=== PATIENT | male | born 1970 | race Caucasian/White ===

== ENCOUNTER 2017-06-15 20:07 | Inpatient (IN) | payer OTHER, MEDICAID ==
--- NOTE | 2017-06-15 20:23 | EDPHY ---
H & P Time Seen by Provider: 06/15/17 20:13 HPI/ROS: CHIEF COMPLAINT: M1 HISTORY OF PRESENT ILLNESS: Patient is a 33-year-old man who appears to be homeless and appears to have schizophrenia he was causing a disturbance at the bus stop and police were called. They brought him here. He has a PICC line in place and hospital bed from an outside hospital. He has surgical incision in his right foot with stitches in place that appears infected and swollen very tender. He tells us that he is Tereso and that he is fighting Thomas. He tells us that aliens put something in his foot. He also tells is however not to remove his PICC line because he needs it to inject his medicine because he has an infected bone in his foot. REVIEW OF SYSTEMS: Unable to obtain reliable review of systems because a condition EXAM: GENERAL: Well-appearing, well-nourished and in no acute distress. HEAD: Atraumatic, normocephalic. EYES: Pupils equal round and reactive to light, extraocular movements intact, sclera anicteric, conjunctiva are normal. ENT: TMs normal, nares patent, oropharynx clear without exudates. Moist mucous membranes. NECK: Normal range of motion, supple without lymphadenopathy or JVD. LUNGS: Breath sounds clear to auscultation bilaterally and equal. No wheezes rales or rhonchi. HEART: Regular rate and rhythm without murmurs, rubs or gallops. ABDOMEN: Soft, nontender, normoactive bowel sounds. No guarding, no rebound. No masses appreciated. BACK: No CVA tenderness, no spinal tenderness, step-offs or deformities EXTREMITIES: See below NEUROLOGICAL: Cranial nerves II through XII grossly intact. Normal speech, normal gait. 5/5 strength, normal movement in all extremities, normal sensation PSYCH: Completely disorganized and delusional, SKIN: Swelling and erythema and tenderness to right foot medially surrounding a surgical incision with sutures in place. Source: Patient, Police Exam Limitations: Clinical condition - Medical/Surgical History Other PMH: Unable to obtain secondary to condition - Family History Significant Family History: No pertinent family hx, Other (Unknown) - Social History Alcohol Use: Other (Unknown) Constitutional: Initial Vital Signs Temperature (C) 37.5 C 06/15/17 20:21 Heart Rate 128 H 06/15/17 20:21 Respiratory Rate 16 06/15/17 20:21 Blood Pressure 153/103 H 06/15/17 20:21 O2 Sat (%) 96 06/15/17 20:21 O2 Delivery Mode Room Air Allergies/Adverse Reactions: No Known Allergies Allergy (Unverified 06/15/17 20:21) Home Medications: Medication Instructions Recorded NK [No Known Home Meds] 06/15/17 Medical Decision Making - Diagnostics Imaging Results: Imaging Impressions Chest X-Ray 06/15/17 21:09 Impression: No acute intrathoracic abnormality. Foot X-Ray 06/15/17 21:09 Impression: Periarticular osteolucency with marginal erosion at the great toe tarsometatarsal junction (and a questionable osteolucent lesion in the great toe metatarsal diaphysis), which may be infectious in etiology given the patient 's history. Correlation with prior studies would be helpful to assess for more specific interval change. Imaging: Discussed imaging studies w/ calliope player Radiologist ED Course/Re-evaluation: 8:50 p.m. I was able to find the patient's previous records in [facility]. He had been treated at [facility] for osteomyelitis. This is presumably where he had his surgery. He was discharged from there on the with a PICC line in place and instructed to give himself Ancef every 8 hr. 6 hr later he showed up at [facility] and stated that he had lost his antibiotics. They were preparing to give him antibiotics and obtain a chest x-ray to evaluate location of the PICC line however they return to tell him it needed some adjustment he accused him of trying to poison him and ran out of the ER. He stated to them that a Matteo Cobra bit his foot and that is what caused the initial infection. The patient will remain on an M1 hold here and be admitted to the medical service for antibiotic treatment. He will cry ICU because of the M1 hold. He was positive for amphetamines at [facility]. I discussed the case with Dr. Mays. We will not use the PICC line and will have it removed. The patient has pain IV. 10:50 p.m. I discussed the case with Dr. Bean who will consult. Differential Diagnosis: Partial list of the Differential diagnosis considered include but were not limited to; schizophrenia, osteomyelitis, cellulitis, sepsis and although unlikely based on the history and physical exam, I also considered head injury, intoxication. Critical Care Time: Critical care time spent by me, Dr. Junior exclusive with this patient was 45 minutes, exclusive of the PA time exclusive of procedures. The organ system that was at risk was musculoskeletal and I gave diagnosis, admission and antibiotic administration to prevent worsening of the patient's condition - Data Points Laboratory Results: Laboratory Results 06/15/17 20:30 06/15/17 20:30 06/15/17 06/15/17 06/15/17 20:30 20:30 20:30 WBC 18.12 10^3/uL H 10^3/uL (3.80-9.50) RBC 4.41 10^6/uL 10^6/uL (4.40-6.38) Hgb 12.3 g/dL L g/dL (13.7-17.5) Hct 38.0 % L % (40.0-51.0) MCV 86.2 fL fL (81.5-99.8) MCH 27.9 pg pg (27.9-34.1) MCHC 32.4 g/dL g/dL (32.4-36.7) RDW 13.7 % % (11.5-15.2) Plt Count 343 10^3/uL 10^3/uL (150-400) MPV 9.6 fL fL (8.7-11.7) Neut % (Auto) 84.2 % H % (39.3-74.2) Lymph % (Auto) 8.1 % L % (15.0-45.0) Alexander % (Auto) 6.7 % % (4.5-13.0) Eos % (Auto) 0.2 % L % (0.6-7.6) Baso % (Auto) 0.4 % % (0.3-1.7) Nucleat RBC Rel Count 0.0 % % (0.0-0.2) Absolute Neuts (auto) 15.26 10^3/uL H 10^3/uL (1.70-6.50) Absolute Lymphs (auto) 1.47 10^3/uL 10^3/uL (1.00-3.00) Absolute Monos (auto) 1.21 10^3/uL H 10^3/uL (0.30-0.80) Absolute Eos (auto) 0.03 10^3/uL 10^3/uL (0.03-0.40) Absolute Basos (auto) 0.08 10^3/uL 10^3/uL (0.02-0.10) Absolute Nucleated RBC 0.00 10^3/uL 10^3/uL (0-0.01) Immature Gran % 0.4 % % (0.0-1.1) Immature Gran # 0.07 10^3/uL 10^3/uL (0.00-0.10) ESR Pending PT 15.0 SEC SEC (12.0-15.0) INR 1.16 (0.83-1.16) APTT 33.1 SEC SEC (23.0-38.0) Sodium Potassium Chloride Carbon Dioxide Anion Gap BUN Creatinine Estimated GFR Glucose Calcium Total Bilirubin C-Reactive Protein Pending Ethyl Alcohol 06/15/17 20:30 WBC RBC Hgb Hct MCV MCH MCHC RDW Plt Count MPV Neut % (Auto) Lymph % (Auto) Alexander % (Auto) Eos % (Auto) Baso % (Auto) Nucleat RBC Rel Count Absolute Neuts (auto) Absolute Lymphs (auto) Absolute Monos (auto) Absolute Eos (auto) Absolute Basos (auto) Absolute Nucleated RBC Immature Gran % Immature Gran # ESR PT INR APTT Sodium 138 mEq/L mEq/L (135-145) Potassium 4.5 mEq/L mEq/L (3.5-5.2) Chloride 99 mEq/L mEq/L (97-110) Carbon Dioxide 20 mEq/l L mEq/l (22-31) Anion Gap 19 mEq/L H mEq/L (8-16) BUN 17 mg/dL mg/dL (7-23) Creatinine 0.8 mg/dL mg/dL (0.7-1.3) Estimated GFR > 60 Glucose 109 mg/dL H mg/dL (70-100) Calcium 10.0 mg/dL mg/dL (8.5-10.4) Total Bilirubin 0.6 mg/dL mg/dL (0.1-1.4) C-Reactive Protein Ethyl Alcohol < 10 mg/dL mg/dL (0-10) Medications Given: Morphine Sulfate (Morphine) 1 - 2 mg IVP Q1HR PRN PRN Reason: Pain, Severe Unable to Take PO Stop: 06/25/17 21:44 Last Admin: 06/15/17 22:22 Dose: 2 mg Discontinued Medications Cefepime HCl 2 gm/ Sterile (Water) 12.5 mls @ 150 mls/hr IV EDNOW ONE PRN Reason: Protocol Stop: 06/15/17 20:57 Last Admin: 06/15/17 21:51 Dose: 12.5 mls Sodium Chloride (Ns) 2,300 mls @ 4,600 mls/hr 30 ml/kg infuse over 30 min ( 2300 ml) IV EDNOW ONE PRN Reason: Protocol Stop: 06/15/17 22:27 Last Admin: 06/15/17 22:08 Dose: 2,300 mls Departure - Departure Disposition: [facility] Inpatient Acute Clinical Impression: Acute psychosis, Severe sepsis Osteomyelitis Qualifiers: Osteomyelitis type: unspecified type Osteomyelitis location: foot Laterality: right Qualified Code(s): M86.9 - Osteomyelitis, unspecified Condition: Critical
[2017-06-15] MEDS ORDERED: CEFEPIME HCL 2 GM in STERILE WATER INJ 12.5 ML IV ONE (20:53)
[2017-06-15 21:17] LABS: PLATELET COUNT 343 10^3/uL (150-400)
[2017-06-15 21:30] LABS: INR 1.16 (0.83-1.16)
[2017-06-15] MEDS ORDERED: LORazepam 2 MG/ML INJ IVP PRN (21:45)
[2017-06-15] MEDS ORDERED: ONDANSETRON 4 MG/2 ML VIAL IVP PRN (21:45)
[2017-06-15] MEDS ORDERED: ACETAMINOPHEN 325 MG TAB PO PRN (21:45)
[2017-06-15] MEDS ORDERED: NS 2,300 ML IV ONE (21:58)
--- NOTE | 2017-06-15 23:21 | PDGENHP ---
History and Physical - Chief Complaint R foot pain - History of Present Illness 46 yo M w/ schizophrenia, currently decompensated, and hx of methamphetamine abuse presents with R foot pain. Patient was discharged from [facility] 2 days ago with a PICC line and a prescription for outpatient Cefazolin therapy. He then presented to [facility] shortly after discharge from with complaints of R foot pain and that he lost his antibiotics, per records available in [place]. Before receiving treatment at [facility] he left AMA per review of records. He presents here with an erythematous, swollen, and painful right foot with fairly recent surgical incision in place. At the time of my evaluation patient is severely psychiatrically decompensated. He believes he is Tereso of [place] and that his foot was bitten by a sea serpent. He states that he does not like to take his psychiatric medication. He cannot elaborate much on any of his past medical history as he has very little insight and significantly disorganized thought structure at the moment. History Information - Allergies/Home Medication List Allergies/Adverse Reactions: No Known Allergies Allergy (Unverified 06/15/17 20:21) Home Medications: NK [No Known Home Meds] 06/15/17 [Last Taken Unknown] I have personally reviewed and updated: family history, medical history - Past Medical History Additional medical history: Schizophrenia - Surgical History Additional surgical history: R foot I&D - Family History Additional family history: Asked, cannot provide - Social History Smoking Status: Unknown if ever smoked Alcohol Use: Other (Unknown) Drug Use: Other (Methamphetamine) Review of Systems Review of Systems: ROS: 10pt was reviewed & negative except for what was stated in HPI & below Physical Exam Physical Exam: Temp Pulse Resp BP Pulse Ox 37.0 C 106 H 20 145/102 H 98 06/15/17 22:46 06/15/17 23:00 06/15/17 23:00 06/15/17 23:00 06/15/17 23:00 Constitutional: uncomfortable, unkempt Eyes: PERRL, EOMI Ears, Nose, Mouth, Throat: moist mucous membranes, no oral mucosal ulcers Cardiovascular: systolic murmur, tachycardia Respiratory: no respiratory distress, clear to auscultation Gastrointestinal: normoactive bowel sounds, soft, non-tender abdomen Skin: erythema, fluctuance, other (R surgical incision on medial R foot surrounded by swelling and erythema) Musculoskeletal: full muscle strength, normal joint ROM Neurologic: sensation intact bilaterally, CN II-XII Intact Psychiatric: agitated, poor insight, poor judgement, poor memory, other ( Disorganized thought, paranoid thinking, significant delusions) Lab Data & Imaging Review 06/15/17 20:30 06/15/17 20:30 WBC 18.12 10^3/uL (3.80-9.50) H 06/15/17 20:30 RBC 4.41 10^6/uL (4.40-6.38) 06/15/17 20:30 Hgb 12.3 g/dL (13.7-17.5) L 06/15/17 20:30 Hct 38.0 % (40.0-51.0) L 06/15/17 20:30 MCV 86.2 fL (81.5-99.8) 06/15/17 20:30 MCH 27.9 pg (27.9-34.1) 06/15/17 20:30 MCHC 32.4 g/dL (32.4-36.7) 06/15/17 20:30 RDW 13.7 % (11.5-15.2) 06/15/17 20:30 Plt Count 343 10^3/uL (150-400) 06/15/17 20:30 MPV 9.6 fL (8.7-11.7) 06/15/17 20:30 Neut % (Auto) 84.2 % (39.3-74.2) H 06/15/17 20:30 Lymph % (Auto) 8.1 % (15.0-45.0) L 06/15/17 20:30 [place] % (Auto) 6.7 % (4.5-13.0) 06/15/17 20:30 Eos % (Auto) 0.2 % (0.6-7.6) L 06/15/17 20:30 Baso % (Auto) 0.4 % (0.3-1.7) 06/15/17 20:30 Nucleat RBC Rel Count 0.0 % (0.0-0.2) 06/15/17 20:30 Absolute Neuts (auto) 15.26 10^3/uL (1.70-6.50) H 06/15/17 20:30 Absolute Lymphs (auto) 1.47 10^3/uL (1.00-3.00) 06/15/17 20:30 Absolute Monos (auto) 1.21 10^3/uL (0.30-0.80) H 06/15/17 20:30 Absolute Eos (auto) 0.03 10^3/uL (0.03-0.40) 06/15/17 20:30 Absolute Basos (auto) 0.08 10^3/uL (0.02-0.10) 06/15/17 20:30 Absolute Nucleated RBC 0.00 10^3/uL (0-0.01) 06/15/17 20:30 Immature Gran % 0.4 % (0.0-1.1) 06/15/17 20:30 Immature Gran # 0.07 10^3/uL (0.00-0.10) 06/15/17 20:30 ESR 25 MM/HR (0-15) H 06/15/17 20:30 PT 15.0 SEC (12.0-15.0) 06/15/17 20:30 INR 1.16 (0.83-1.16) 06/15/17 20:30 APTT 33.1 SEC (23.0-38.0) 06/15/17 20:30 VBG Lactic Acid 2.6 mmol/L (0.7-2.1) H 06/15/17 21:30 Sodium 138 mEq/L (135-145) 06/15/17 20:30 Potassium 4.5 mEq/L (3.5-5.2) 06/15/17 20:30 Chloride 99 mEq/L (97-110) 06/15/17 20:30 Carbon Dioxide 20 mEq/l (22-31) L 06/15/17 20:30 Anion Gap 19 mEq/L (8-16) H 06/15/17 20:30 BUN 17 mg/dL (7-23) 06/15/17 20:30 Creatinine 0.8 mg/dL (0.7-1.3) 06/15/17 20:30 Estimated GFR > 60 06/15/17 20:30 Glucose 109 mg/dL (70-100) H 06/15/17 20:30 Calcium 10.0 mg/dL (8.5-10.4) 06/15/17 20:30 Total Bilirubin 0.6 mg/dL (0.1-1.4) 06/15/17 20:30 C-Reactive Protein 72.0 mg/L (<10.0) H 06/15/17 20:30 Ethyl Alcohol < 10 mg/dL (0-10) 06/15/17 20:30 Imaging Review: Imaging Impressions Chest X-Ray 06/15/17 21:09 Impression: No acute intrathoracic abnormality. Foot X-Ray 06/15/17 21:09 Impression: Periarticular osteolucency with marginal erosion at the great toe tarsometatarsal junction (and a questionable osteolucent lesion in the great toe metatarsal diaphysis), which may be infectious in etiology given the patient 's history. Correlation with prior studies would be helpful to assess for more specific interval change. Assessment & Plan Assessment: 46 yo M w/ paranoid schizophrenia, currently decompensated, presents with R foot infection and recent diagnosis of OM at outside hospital. Plan: 1. Sepsis 2/2 R foot cellulitis, underlying OM - Sepsis per WBC of 18 and tachycardia. CRP elevated at 72. Patient recently admitted at [facility] and discharged with PICC line and prescription of Ancef, which he did not receive. Upon inspection foot is erythematous, swollen, and painful with recent surgical incision noted. XR concerning for OM, which is not new per report. - Continue Cefazolin 2 g IV q8h - Repeat blood cultures - ID consult placed - Surgical consultation placed as he may need repeat I&D 2. Schizophrenia, acute decompensated - Per patient report and review of records in [facility], patient is historically non-compliant. He is quite decompensated at the moment and will benefit from medication treatment. - Will start Zyprexa 6 mg qHS for now - Psychiatry consultation, admit to ICU for M1 hold 3. Hx methamphetamine abuse - Check Utox Diet - Regular, NPO @ [facility] in case he needs surgical intervention Code - Full Ppx - SCDs Dispo - Admit as inpatient status and M1 hold noting need for IV antibiotics, surgical consultation, and psychiatric treatment.
[2017-06-15] MEDS ORDERED: OLANZapine 5 MG TAB PO SCH (23:30)
[2017-06-15] MEDS ORDERED: PROPOFOL 200 MG/20 ML VIAL IVP ONE ×2 (23:38→23:45)
--- NOTE | 2017-06-16 00:06 | PDCONSULT ---
Radio Interference Expert Note: full consult dictated Rt foot infection ? osteomyelitis underlying I&D with pulse lavage wound care consult in am
--- NOTE | 2017-06-16 00:26 | PDMN ---
Medical Necessity Medical necessity: C/M review: est. > 2 MN LOS for eval and TX of acute and persistent - sepsis secondary to right foot cellulitis, right foot is erythematous, swollen with recent surgical incision present on admit, underlying osteomyelitis, decompensated schizophrenia requiring planned Surgical consult as patient may need repeat I&D, , planned Infectious disease consult, planned Psychiatry consult, IV Cefazolin, M1 hold in ICU comorbid recent hospitalization at [facility] and patient discharged with PICC line and prescription of Ancef which the patient did not receive, comorbid history of noncompliance, methamphetamine abuse per H/P.
[2017-06-16 03:48] LABS: PLATELET COUNT 274 10^3/uL (150-400)
[2017-06-16] MEDS: ceFAZolin 2 GM/DEXTROSE 100 ML IV SCH ×3 (05:42→22:32)
--- NOTE | 2017-06-16 06:52 | GCON ---
[f rep st] CONSULTATION HISTORY OF PRESENT ILLNESS: This is a 46-year-old gentleman, who was released from [facility] ent with right foot infection, possible osteomyelitis, on Ancef through a PICC line, who presented then to [facility], but then left AMA and was brought here on an M1 hold due to psychiatric is sues. He believes that he is Tereso and that he is helping Mohammad, and that aliens are trying to pu t poison in his leg. The patient is unable to give a good history. This was gotten from the care te am. In the notes, no x-rays were performed by my own review of [facility] notes. PHYSICAL EXAMINATION: The patient is awake. He is complaining of pain in his right foot. Sclerae a re anicteric. Oropharynx is moist. He has multiple skin wounds and left brachial PICC line. His yoon ngs are clear. Heart has regular heart tones. Abdomen is soft. He has 2+/2+ peripheral pulses. Ri ght foot is edematous with erythema around a previously incised area that has been closed with interr upted vertical mattress sutures. IMPRESSION: Infection of the right foot, possible osteomyelitis. PLAN: I and D. After discussion with Dr. Olson, we have decided that this is recommended at this point, and we will proceed with bedside I and D. Under propofol, his wound was cleansed. The stitch es were removed. I digitally explored the wound, which was not very deep. Serous fluid was obtained and the area was irrigated with pulse lavage and iodine gauze was placed, and the patient had it wra pped. We will continue to follow the patient while he is here in the hospital. /[id number]/MODL
--- NOTE | 2017-06-16 08:41 | SOAPPROG ---
SOAP Progress Note Assessment/Plan: Assessment/Plan: Still erythematous but draining. Will continue to follow-up the hospital. Wound culture if antibiotics failed to show significant improvement Daily dressing change with iodoform gauze. Continue Ancef consider Unasyn 06/16/17 08:40 Objective: Vital Signs Temp Pulse Resp BP Pulse Ox 36.6 C 90 11 L 123/72 H 98 06/16/17 08:00 06/16/17 08:00 06/16/17 08:00 06/16/17 08:00 06/16/17 07:00 Laboratory Results 06/16/17 03:20 06/16/17 03:20 06/15/17 06/16/17 06/17/17 05:59 05:59 05:59 Intake Total 910 Output Total 450 400 Balance 460 -400 PT 15.0 SEC (12.0-15.0) 06/15/17 20:30 INR 1.16 (0.83-1.16) 06/15/17 20:30 ICD10 Worksheet Patient Problems: Problems Problem Status Onset Acute psychosis Acute Osteomyelitis Acute Severe sepsis Acute
--- NOTE | 2017-06-16 09:46 | ASMTCMCOM ---
CM Note CM Note Notes: 46 year old male admitted for R foot infection, possible osteomyelitis, schizophrenia-psychosis. He has a hx of meth use. Was D/C from [facility] 2 days ago went to [facility], left AMA came to [facility] and now on M1 Hold. Will need a psych eval after cleared medically. CM to follow. Date Signed: 06/16/2017 09:45 AM Electronically Signed By:Claudia Delgadillo LCSW
[2017-06-16] MEDS ORDERED: OLANZapine 5 MG TAB PO PRN (09:52)
[2017-06-16] MEDS ORDERED: HALOPERIDOL LACT 5 MG/ML INJ IVP PRN (09:53)
[2017-06-16] MEDS: OLANZapine 5 MG TAB PO SCH ×2 (11:14→22:32)
--- NOTE | 2017-06-16 13:22 | HOSPPROG ---
Hospitalist Progress Note Assessment/Plan: * right lower extremity cellulitis and probable osteomyelitis * Was at [facility] and had I and D there it appears * Continue IV Ancef for now. * Infectious Disease will see * We need to get records from [facility] * schizophrenia * Schedule Zyprexa twice daily and as needed * Haldol p.r.n. * methamphetamine use * Positive U tox Subjective: No new complaints. Seems pretty calm with Ativan and Zyprexa Objective: Vital Signs Temp Pulse Resp BP Pulse Ox 36.6 C 90 11 L 123/72 H 98 06/16/17 08:00 06/16/17 08:00 06/16/17 08:00 06/16/17 08:00 06/16/17 07:00 Laboratory Results 06/16/17 03:20 06/16/17 03:20 06/15/17 06/16/17 06/17/17 05:59 05:59 05:59 Intake Total 910 Output Total 450 400 Balance 460 -400 PT 15.0 SEC (12.0-15.0) 06/15/17 20:30 INR 1.16 (0.83-1.16) 06/15/17 20:30 - Physical Exam Constitutional: no apparent distress, appears nourished, not in pain Eyes: anicteric sclera, EOMI Ears, Nose, Mouth, Throat: moist mucous membranes, hearing normal Cardiovascular: regular rate and rhythym Respiratory: no respiratory distress Skin: warm Musculoskeletal: other (Right foot with incision medially that is with some surrounding erythema which has been marked) ICD10 Worksheet Patient Problems: Problems Problem Status Onset Acute psychosis Acute Osteomyelitis Acute Severe sepsis Acute
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
[2017-06-17 03:58] LABS: HIV TYPE 1 AND 2 NEGATIVE (NEGATIVE)
[2017-06-17 06:02] LABS: PLATELET COUNT 242 10^3/uL (150-400)
[2017-06-17] MEDS: ceFAZolin 2 GM/DEXTROSE 100 ML IV SCH ×3 (06:28→21:24)
[2017-06-17] MEDS: OLANZapine 5 MG TAB PO SCH ×2 (08:34→21:24)
--- NOTE | 2017-06-17 12:13 | PCMIDPN ---
Assessment/Plan: Assessment: Osteomyelitis right foot-recent stay at [facility]. Per verbal report through Dr. Lucio the patient had a closed wound upon discharge at [facility]. Currently the wound is opened and has no further purulence able to be produced. Patient is covered empirically with cefazolin. Staph aureus seen in wound culture. Wound at [facility] had MSSA in culture. Will continue to cover with cefazolin. Long-term treatment for osteomyelitis given underlying mental health issues is going to be difficult. Plan: 1. Continue IV cefazolin. 2. Follow up on wound culture data. 3. Follow clinical course. Subjective: Patient is resting in his hospital bed in the ICU. He is on on a mental health hold. No significant complaints. No issues per his RN. Objective: Cefazolin #2 Vital Signs Temp Pulse Resp BP Pulse Ox 37.1 C 87 18 116/83 H 94 06/17/17 07:11 06/17/17 07:11 06/17/17 00:00 06/17/17 07:11 06/17/17 07:11 Microbiology 06/16/17 13:45 Gram Stain - Final Foot - Swab Laboratory Results 06/17/17 05:22 06/17/17 05:22 06/16/17 06/17/17 06/18/17 05:59 05:59 05:59 Intake Total 910 1700 Output Total 450 1600 Balance 460 100 ESR 25 MM/HR (0-15) H 06/15/17 20:30 C-Reactive Protein 72.0 mg/L (<10.0) H 06/15/17 20:30 - Physical Exam General Appearance: WD/WN, alert, no apparent distress, non-toxic Skin: normal color, warm/dry, No rash ICD10 Worksheet Patient Problems: Problems Problem Status Onset Acute psychosis Acute Osteomyelitis Acute Severe sepsis Acute
[2017-06-17] MEDS: NICOTINE 21 MG/24 HR PATCH TD SCH (12:51)
--- NOTE | 2017-06-17 16:13 | SOAPPROG ---
SOAP Progress Note Assessment/Plan: Assessment/Plan: Still erythematous but draining. Will continue to follow-up the hospital. Wound culture initial staph aureus Daily dressing change with iodoform gauze. Wound improved, foot still swollen. Hx of frostbite ? baseline Continue Ancef consider Unasyn 06/17/17 16:06 Objective: Vital Signs Temp Pulse Resp BP Pulse Ox 36.9 C 79 18 118/77 95 06/17/17 15:24 06/17/17 15:24 06/17/17 00:00 06/17/17 15:24 06/17/17 15:24 Microbiology 06/16/17 13:45 Gram Stain - Final Foot - Swab Laboratory Results 06/17/17 05:22 06/17/17 05:22 06/16/17 06/17/17 06/18/17 05:59 05:59 05:59 Intake Total 910 1700 1400 Output Total 450 1600 950 Balance 460 100 450 PT 15.0 SEC (12.0-15.0) 06/15/17 20:30 INR 1.16 (0.83-1.16) 06/15/17 20:30 ICD10 Worksheet Patient Problems: Problems Problem Status Onset Acute psychosis Acute Osteomyelitis Acute Severe sepsis Acute
--- NOTE | 2017-06-17 17:29 | ASMTCMCOM ---
CM Note CM Note Notes: Spoke to patient's mother, Constanza [phone] today. Patient has had mental hlth and SA difficulties for the past 30 years. He is involved with the [facility] [place] and has a CM named Sayda Harrington [phone] who has been working with him for the past 2 years and knows what medications they have prescribed. This info given to [facility] pharmacy. Mother also reports that patient is a paranoid schizophrenic, feels that everyone is after him and that a snake bit him in his foot and that's why it's infected. He had been at [facility] for 11 days then went to [facility] for more IV ABX. He left there due to his paranoia and came to [place]. Mother reports that he uses Meth and Heroin. Mother feels that he is a "Danger to Himself". Date Signed: 06/17/2017 05:28 PM Electronically Signed By:Claudia Delgadillo LCSW
--- NOTE | 2017-06-17 21:14 | HOSPPROG ---
Hospitalist Progress Note Assessment/Plan: * RLE osteomyelitis/abscess - MSSA -IV ancef -prolong abx will be difficult due to drug abuse history with PICC * Paranoid schizophrenia -trying to clarify home meds -PO zyprexa for now * IVDA -doubt acute psychosis on admission - likely drug intoxication -patient now awake/alert/oriented and denies suicidal thoughts -DC M1 hold Subjective: no complaints other than foot pain Objective: Vital Signs Temp Pulse Resp BP Pulse Ox 36.9 C 79 18 118/77 95 06/17/17 15:24 06/17/17 15:24 06/17/17 00:00 06/17/17 15:24 06/17/17 15:24 Microbiology 06/16/17 13:45 Gram Stain - Final Foot - Swab Laboratory Results 06/17/17 05:22 06/17/17 05:22 06/16/17 06/17/17 06/18/17 05:59 05:59 05:59 Intake Total 910 1700 1650 Output Total 450 1600 950 Balance 460 100 700 PT 15.0 SEC (12.0-15.0) 06/15/17 20:30 INR 1.16 (0.83-1.16) 06/15/17 20:30 d/w Dr. Barrios - M1 hold likely not necessary foot xray - probably osteomyelitis - Physical Exam Constitutional: no apparent distress, appears nourished, not in pain Cardiovascular: regular rate and rhythym, no murmur, rub, or gallop Respiratory: no respiratory distress, no rales or rhonchi, clear to auscultation Gastrointestinal: normoactive bowel sounds, soft, non-tender abdomen, no palpable masses Skin: no rashes or abrasions, no fluctuance, no induration Neurologic: AAOx3, sensation intact bilaterally Psychiatric: interacting appropriately, not anxious, not encephalopathic, thought process linear ICD10 Worksheet Patient Problems: Problems Problem Status Onset Acute psychosis Acute Osteomyelitis Acute Severe sepsis Acute
[2017-06-18] MEDS: ceFAZolin 2 GM/DEXTROSE 100 ML IV SCH ×3 (05:36→21:01)
[2017-06-18] MEDS: NICOTINE 21 MG/24 HR PATCH TD SCH (08:07)
[2017-06-18] MEDS: OLANZapine 5 MG TAB PO SCH (08:07)
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
--- NOTE | 2017-06-18 17:14 | HOSPPROG ---
Hospitalist Progress Note Assessment/Plan: * RLE osteomyelitis/abscess - MSSA - extensive - s/p I&D at -IV ancef - needs 6 weeks total treatment -d/w Dr. Lucio - discharging with PICC line not an option given drug abuse history -plan to keep inpatient for full therapy -pain control - IV morphine - will change to PO -remove PICC -consider re-imaging foot given worsened status since discharge * Paranoid schizophrenia -was on zyprexa 20mg at - will increase dose * h/o IVDA - he denies current use but tox + meth/opiates * Hep C + Subjective: Lots of pain in foot, IV morphine wears off too soon. Objective: Vital Signs Temp Pulse Resp BP Pulse Ox 36.8 C 71 16 118/76 98 06/18/17 07:04 06/18/17 07:04 06/18/17 07:04 06/18/17 07:04 06/18/17 07:04 Microbiology 06/16/17 13:45 Gram Stain - Final Foot - Swab Laboratory Results 06/17/17 05:22 06/17/17 05:22 06/17/17 06/18/17 06/19/17 05:59 05:59 05:59 Intake Total 1700 2550 1200 Output Total 1600 1950 1275 Balance 100 600 -75 PT 15.0 SEC (12.0-15.0) 06/15/17 20:30 INR 1.16 (0.83-1.16) 06/15/17 20:30 case d/w Dr. Lucio - difficult social situation - Physical Exam Constitutional: no apparent distress, appears nourished, not in pain Cardiovascular: regular rate and rhythym, no murmur, rub, or gallop Respiratory: no respiratory distress, no rales or rhonchi, clear to auscultation Gastrointestinal: normoactive bowel sounds, soft, non-tender abdomen, no palpable masses Skin: no rashes or abrasions, no fluctuance, no induration Neurologic: AAOx3, sensation intact bilaterally Psychiatric: interacting appropriately, not anxious, not encephalopathic, thought process linear ICD10 Worksheet Patient Problems: Problems Problem Status Onset Acute psychosis Acute Osteomyelitis Acute Severe sepsis Acute
[2017-06-18] MEDS: OXYCODONE/APAP 5/325 TAB PO PRN (17:54)
[2017-06-18] MEDS: OLANZapine 10 MG TAB PO SCH (21:01)
[2017-06-18] MEDS: traMADol 50 MG TAB PO PRN (21:17)
[2017-06-19] MEDS: ceFAZolin 2 GM/DEXTROSE 100 ML IV SCH ×3 (05:25→21:44)
[2017-06-19] MEDS: OXYCODONE/APAP 5/325 TAB PO PRN ×4 (05:31→23:04)
--- NOTE | 2017-06-19 08:23 | SOAPPROG ---
SOAP Progress Note Assessment/Plan: Assessment/Plan: Still erythematous but minimal draining. Daily dressing changed with iodoform gauze. Wound improved, foot less swollen. Hx of frostbite ? baseline Cont abx CT of foot tomorrow if still stagnating to determine if undrained pocket in dorsum/forefoot 06/17/17 16:06 06/19/17 08:21 Objective: Vital Signs Temp Pulse Resp BP Pulse Ox 36.7 C 75 18 115/75 94 06/18/17 23:29 06/18/17 23:29 06/18/17 23:29 06/18/17 23:29 06/18/17 23:29 Microbiology 06/16/17 13:45 Gram Stain - Final Foot - Swab Laboratory Results 06/17/17 05:22 06/17/17 05:22 06/18/17 06/19/17 06/20/17 05:59 05:59 05:59 Intake Total 2550 2400 Output Total 1950 1825 Balance 600 575 PT 15.0 SEC (12.0-15.0) 06/15/17 20:30 INR 1.16 (0.83-1.16) 06/15/17 20:30 ICD10 Worksheet Patient Problems: Problems Problem Status Onset Acute psychosis Acute Osteomyelitis Acute Severe sepsis Acute
[2017-06-19] MEDS: OLANZapine 10 MG TAB PO SCH ×2 (08:59→21:43)
[2017-06-19] MEDS: NICOTINE 21 MG/24 HR PATCH TD SCH (10:57)
--- NOTE | 2017-06-19 15:17 | PCMIDPN ---
Assessment/Plan: # MSSA R LE foot abscess and OM 1st, 2nd met and cuboid: unclear source of infection, stable today but still fairly edematous and tender. --due to extent of disease in his foot would keep him inpatient for IV antibiotic for total of 6 weeks of therapy (almost 2 weeks in). IF he leaves would complete therapy with high dose PO antibiotics with good bioavailability since current attempt at IV failed --continue with PIV unless no new sites because high flight risk for now now --still w fair amount of pain and swelling, may have to consider re-imaging # HCV load 404K, HIV neg # Schizoaffective d/o: up to 20mg olanzapine at OSH, off M1 hold, cooperative today, says some appropriate things # Meth and cocaine use: patient denies meds, IV Abx # approx 14 days cefazolin 2gm IV q8 MRI R foot 06/03/17: abn signal at great toe tarsometatarsal join, with abn signal involving entire 1st met, portions of 2nd & middle cuneiform. Biospy 06/05 showed bone w acute and chr inflammation, fibrosis and remodeling,bone cx MSSA. Tissue cx 06/05/17 MSSA only PCN R. 06/04/17 blood cx (2) neg. Reviewed pictures in OSH records and R foot without swelling and closed incision . TTE neg for veg and blood cx negative Subjective: patient endorses importance of therapy for his foot Objective: Vital Signs Temp Pulse Resp BP Pulse Ox 36.8 C 75 18 116/73 95 06/19/17 08:00 06/19/17 08:00 06/19/17 08:00 06/19/17 08:00 06/19/17 08:00 Microbiology 06/16/17 13:45 Gram Stain - Final Foot - Swab Wound Culture - Final Staphylococcus Aureus Laboratory Results 06/17/17 05:22 06/17/17 05:22 06/18/17 06/19/17 06/20/17 05:59 05:59 05:59 Intake Total 2550 2400 Output Total 1950 1825 Balance 600 575 ESR 25 MM/HR (0-15) H 06/15/17 20:30 C-Reactive Protein 72.0 mg/L (<10.0) H 06/15/17 20:30 General Appearance: alert, no apparent distress, thin, non-toxic EENT: pale conjunctiva, poor dentition, No scleral icterus Respiratory: No accessory muscle use Cardiac/Chest: regular rate, rhythm, No systolic murmur Extremities: swelling R foot medial side, open wound, no purulence, faint erythema surrounding wound Neuro/Psych: no motor/sensory deficits, alert, cooperative ICD10 Worksheet Patient Problems: Problems Problem Status Onset Acute psychosis Acute Osteomyelitis Acute Severe sepsis Acute
[2017-06-19] MEDS: ENOXAPARIN 40 MG/0.4 ML SYR SC SCH (16:10)
--- NOTE | 2017-06-19 17:05 | ASMTCMCOM ---
CM Note CM Note Notes: Pt on 3N from ICU. RN Miguelina spoke to this CM about a conversation she had w pt mother Ele ([phone]), Ele is interested in [facility] for pt. Pt sister who is a nurse had made a call to a case manger at [facility]. Referral sent in [employer], unknown if they can meet pt needs. Pt picc was removed at admission and antibiotics are administered now via peripheral. Chart review indicates pt still needs to be seen by psych here. Pt moved to this afternoon. Date Signed: 06/19/2017 05:04 PM Electronically Signed By:JEREMIE Roman
--- NOTE | 2017-06-19 17:21 | HOSPPROG ---
Hospitalist Progress Note Assessment/Plan: * RLE osteomyelitis/abscess - MSSA - extensive - s/p I&D at -IV ancef - needs 6 weeks total treatment -discharging with PICC line not an option given drug abuse history -plan to keep inpatient for full therapy -consider re-imaging foot given worsened status since discharge * Paranoid schizophrenia -well control on previous zyprexa dose * h/o IVDA - he denies current use but tox + meth/opiates * Hep C + Subjective: No complaints, pain well controlled Objective: Vital Signs Temp Pulse Resp BP Pulse Ox 37.1 C 75 18 120/83 H 98 06/19/17 16:00 06/19/17 08:00 06/19/17 16:00 06/19/17 16:00 06/19/17 16:00 Microbiology 06/16/17 13:45 Gram Stain - Final Foot - Swab Wound Culture - Final Staphylococcus Aureus Laboratory Results 06/17/17 05:22 06/17/17 05:22 06/18/17 06/19/17 06/20/17 05:59 05:59 05:59 Intake Total 2550 2400 Output Total 1950 1825 Balance 600 575 PT 15.0 SEC (12.0-15.0) 06/15/17 20:30 INR 1.16 (0.83-1.16) 06/15/17 20:30 - Physical Exam Constitutional: no apparent distress, appears nourished, not in pain Cardiovascular: regular rate and rhythym, no murmur, rub, or gallop Respiratory: no respiratory distress, no rales or rhonchi, clear to auscultation Gastrointestinal: normoactive bowel sounds, soft, non-tender abdomen, no palpable masses Skin: no rashes or abrasions, no fluctuance, no induration Neurologic: AAOx3, sensation intact bilaterally Psychiatric: interacting appropriately, not anxious, not encephalopathic, thought process linear ICD10 Worksheet Patient Problems: Problems Problem Status Onset Acute psychosis Acute Osteomyelitis Acute Severe sepsis Acute
--- NOTE | 2017-06-19 20:32 | HOSPPROG ---
Hospitalist Progress Note Assessment/Plan: * RLE osteomyelitis/abscess - MSSA - extensive - s/p I&D at -IV ancef - needs 6 weeks total treatment -discharging with PICC line not an option given drug abuse history -plan to keep inpatient for full therapy -consider re-imaging foot given worsened status since discharge * Paranoid schizophrenia -well control on previous zyprexa dose * h/o IVDA - he denies current use but tox + meth/opiates * Hep C + Subjective: No complaints, pain better control Objective: Vital Signs Temp Pulse Resp BP Pulse Ox 36.9 C 69 16 130/87 H 98 06/19/17 19:48 06/19/17 19:48 06/19/17 19:48 06/19/17 19:48 06/19/17 19:48 Microbiology 06/16/17 13:45 Gram Stain - Final Foot - Swab Wound Culture - Final Staphylococcus Aureus Laboratory Results 06/17/17 05:22 06/17/17 05:22 06/18/17 06/19/17 06/20/17 05:59 05:59 05:59 Intake Total 2550 2400 240 Output Total 1950 1825 Balance 600 575 240 PT 15.0 SEC (12.0-15.0) 06/15/17 20:30 INR 1.16 (0.83-1.16) 06/15/17 20:30 - Physical Exam Constitutional: no apparent distress, appears nourished, not in pain Cardiovascular: regular rate and rhythym, no murmur, rub, or gallop Respiratory: no respiratory distress, no rales or rhonchi, clear to auscultation Gastrointestinal: normoactive bowel sounds, soft, non-tender abdomen, no palpable masses Skin: no rashes or abrasions, no fluctuance, no induration Neurologic: AAOx3, sensation intact bilaterally Psychiatric: interacting appropriately, not anxious, not encephalopathic, thought process linear ICD10 Worksheet Patient Problems: Problems Problem Status Onset Acute psychosis Acute Osteomyelitis Acute Severe sepsis Acute
[2017-06-20] MEDS: OXYCODONE/APAP 5/325 TAB PO PRN ×3 (06:02→15:09)
[2017-06-20] MEDS: ceFAZolin 2 GM/DEXTROSE 100 ML IV SCH ×3 (06:28→20:44)
[2017-06-20] MEDS: ENOXAPARIN 40 MG/0.4 ML SYR SC SCH (08:08)
[2017-06-20] MEDS: OLANZapine 10 MG TAB PO SCH ×2 (08:08→20:44)
[2017-06-20] MEDS: NICOTINE 21 MG/24 HR PATCH TD SCH (08:08)
--- NOTE | 2017-06-20 12:40 | ASMTCMCOM ---
CM Note CM Note Notes: Pt currently being treated for RLE Osteomyeitis/abcess, has hx of schizophrenia and IV drug abuse. Pt's director community center from [facility] ([facility]), Viola ([phone]) here this AM to see pt. Todd reports that she has been working with pt for around 6 months and says he is not compliant w/meds, is addicted to meth, although she says he denies this, and he is often hard for her to track down in her attempts to follow him. She obtained release of info this AM from pt so she could discuss info with his mom. I also asked pt if ok for us to share medical info with his mom and sister and he did give verbal consent to this. Viola also [place]. She said that she is advocating for in hospital certification of treatment and she even suggested possibly considering obtaining guardianship through mom or sister. Discussed all of this w/Dr Lewis. Please see her note as to current plan with this pt. Viola reported that pt is on [facility] wait list which is 1 year long through [facility]. Pt's Mom, Constnaza # is [phone]. Viola from [facility] would like to be kep in loop of pts plan/staus so that she can continue to follow him. Date Signed: 06/20/2017 12:39 PM Electronically Signed By:Tesha Powell RN
--- NOTE | 2017-06-20 18:26 | SOAPPROG ---
SOAP Progress Note Assessment/Plan: Assessment/Plan: Still erythematous but minimal draining. Daily dressing changed with iodoform gauze. Wound improved, foot less swollen. Cont abx No need for CT 06/20/17 18:25 Objective: Vital Signs Temp Pulse Resp BP Pulse Ox 36.5 C 70 16 123/90 H 97 06/20/17 15:40 06/20/17 15:40 06/20/17 15:40 06/20/17 15:40 06/20/17 15:40 Laboratory Results 06/17/17 05:22 06/17/17 05:22 06/19/17 06/20/17 06/21/17 05:59 05:59 05:59 Intake Total 2400 740 Output Total 1825 Balance 575 740 PT 15.0 SEC (12.0-15.0) 06/15/17 20:30 INR 1.16 (0.83-1.16) 06/15/17 20:30 ICD10 Worksheet Patient Problems: Problems Problem Status Onset Acute psychosis Acute Osteomyelitis Acute Severe sepsis Acute
--- NOTE | 2017-06-20 19:06 | HOSPPROG ---
Hospitalist Progress Note Assessment/Plan: * RLE osteomyelitis/abscess - MSSA - extensive - s/p I&D at -IV ancef - needs 6 weeks total treatment -discharging with PICC line not an option given drug abuse history -plan to keep inpatient for full therapy -consider re-imaging foot given worsened status since discharge * Paranoid schizophrenia -continue previous zyprexa dose * h/o IVDA - he denies current use but tox + meth/opiates * Hep C + Case d/w his outpatient psych provider. He is very decompensated from a schizophrenia standpoint. They recommend inpatient psych hospitalization post discharge. I don't think there is an inpatient psych facility that will do IV antibiotics, and likely not for the ~4 weeks of therapy still required. Patient is currently compliant with hospitalization. If he attempts to leave however, he should be medically detained, or placed on M1 hold as his outpatient psychiatry team does not think he has decisional capacity from a psych standpoint. When medically stable, would place on M1 hold an pursue inpatient psych stay. Subjective: no new complaints. he understand he may need amputation if he does not complete therapy as recommended Objective: Vital Signs Temp Pulse Resp BP Pulse Ox 36.5 C 70 16 123/90 H 97 06/20/17 15:40 06/20/17 15:40 06/20/17 15:40 06/20/17 15:40 06/20/17 15:40 Laboratory Results 06/17/17 05:22 06/17/17 05:22 06/19/17 06/20/17 06/21/17 05:59 05:59 05:59 Intake Total 2400 740 Output Total 1825 Balance 575 740 PT 15.0 SEC (12.0-15.0) 06/15/17 20:30 INR 1.16 (0.83-1.16) 06/15/17 20:30 - Physical Exam Constitutional: no apparent distress, appears nourished, not in pain Cardiovascular: regular rate and rhythym, no murmur, rub, or gallop Respiratory: no respiratory distress, no rales or rhonchi, clear to auscultation Gastrointestinal: normoactive bowel sounds, soft, non-tender abdomen, no palpable masses Skin: no rashes or abrasions, no fluctuance, no induration Neurologic: AAOx3, sensation intact bilaterally Psychiatric: interacting appropriately, anxious, agitated, poor insight ICD10 Worksheet Patient Problems: Problems Problem Status Onset Acute psychosis Acute Osteomyelitis Acute Severe sepsis Acute
[2017-06-21] MEDS: ceFAZolin 2 GM/DEXTROSE 100 ML IV SCH (05:16)
[2017-06-21] MEDS: OXYCODONE/APAP 5/325 TAB PO PRN ×4 (05:17→22:03)
[2017-06-21] MEDS: OLANZapine 10 MG TAB PO SCH ×2 (09:04→21:58)
[2017-06-21] MEDS: NICOTINE 21 MG/24 HR PATCH TD SCH (09:04)
[2017-06-21] MEDS: LORazepam 1 MG TAB PO PRN ×2 (09:04→15:22)
[2017-06-21] MEDS: ENOXAPARIN 40 MG/0.4 ML SYR SC SCH (09:04)
--- NOTE | 2017-06-21 09:36 | PCMIDPN ---
Assessment/Plan: 1. Right foot abscess secondary to MSSA status post debridement, with concomitant osteomyelitis of the 1st and 2nd metatarsal and cuboid bones: Overall, he is improving nicely. The wound looks great. As outlined by my colleagues previously, he will need Ancef 2 g IV q.8 hours for 6 weeks, and will likely need to stay here for that. No new recommendations. No need for additional imaging presently. 2. History of schizoaffective disorder: After reading the hospitalist's note, it appears that the patient would be put on an M1 hold if he attempted to leave the hospital given his decompensated mental state. 3. History of drug use: He has chronic hepatitis-C. HIV negative. Records reviewed from [facility] again. Hepatitis-B surface antigen negative. Will check surface antibody and core antibody to see if he needs vaccination. Will also check hepatitis a total antibody and vaccinate him if needed. Over 25 min was spent with this patient. 06/21/17 09:36 Subjective: In decent spirits. Says his foot hurts. No diarrhea. Objective: Ancef 2 g IV q.8 hours approximately day 15. Afebrile Vital Signs Temp Pulse Resp BP Pulse Ox 36.4 C 75 16 123/91 H 96 06/21/17 07:44 06/21/17 07:44 06/21/17 07:44 06/21/17 07:44 06/21/17 07:44 Microbiology 06/15/17 21:25 Blood Culture - Final Blood Laboratory Results 06/17/17 05:22 06/17/17 05:22 06/20/17 06/21/17 06/22/17 05:59 05:59 05:59 Intake Total 740 318 Balance 740 318 ESR 25 MM/HR (0-15) H 06/15/17 20:30 C-Reactive Protein 72.0 mg/L (<10.0) H 06/15/17 20:30 Foot cultures here are growing MSSA Blood cultures negative - Physical Exam General Appearance: alert, cachetic EENT: pharynx normal, No thrush Respiratory: lungs clear Cardiac/Chest: regular rate, rhythm, No systolic murmur Extremities: other (Right foot dorsum with elliptical incision/wound that looks excellent. Minimal surrounding tenderness, no surrounding cellulitis. The base of the wound is clean. No significant swelling or warmth. Patient has desquamation of the skin of the bottoms of his feet) ICD10 Worksheet Patient Problems: Problems Problem Status Onset Acute psychosis Acute Osteomyelitis Acute Severe sepsis Acute
[2017-06-21 11:53] LABS: HEPATITIS A ANTIBODY TOTAL NEGATIVE (NEGATIVE); HEPATITIS B CORE AB TOTAL REACTIVE (NEGATIVE)
[2017-06-21] MEDS: ceFAZolin 2 GM/SWFI 2 GM/20 ML SYR IVP SCH ×2 (13:48→21:58)
--- NOTE | 2017-06-21 14:43 | SOAPPROG ---
SOAP Progress Note Assessment/Plan: Assessment/Plan: Still erythematous but minimal draining. Daily dressing changed with iodoform gauze- wound granulating no pockets of undrained fluid Hep C positive Hep B core positive Wound improved, foot less swollen. Cont abx No need for CT Will f/u next week if in house else f/u in office in 2 weeks 06/20/17 18:25 06/21/17 14:42 Objective: Vital Signs Temp Pulse Resp BP Pulse Ox 36.4 C 75 16 123/91 H 96 06/21/17 07:44 06/21/17 07:44 06/21/17 07:44 06/21/17 07:44 06/21/17 07:44 Microbiology 06/15/17 21:25 Blood Culture - Final Blood Laboratory Results 06/17/17 05:22 06/17/17 05:22 06/20/17 06/21/17 06/22/17 05:59 05:59 05:59 Intake Total 740 318 Balance 740 318 PT 15.0 SEC (12.0-15.0) 06/15/17 20:30 INR 1.16 (0.83-1.16) 06/15/17 20:30 ICD10 Worksheet Patient Problems: Problems Problem Status Onset Acute psychosis Acute Osteomyelitis Acute Severe sepsis Acute
--- NOTE | 2017-06-21 14:52 | HOSPPROG ---
Hospitalist Progress Note Assessment/Plan: DIAGNOSES: RLE osteomyelitis/abscess - MSSA - extensive - s/p I&D at -IV ancef - needs 6 weeks total treatment; discharging with PICC line not an option given drug abuse history, plan to keep inpatient for full therapy * Paranoid schizophrenia -continue previous zyprexa dose * h/o IVDA - he denies current use but tox + meth/opiates * Hep C + * current use of IV methamphetamine and heroin the time of admission Case d/w his outpatient psych provider. He is very decompensated from a schizophrenia standpoint. They recommend inpatient psych hospitalization post discharge. I don't think there is an inpatient psych facility that will do IV antibiotics, and likely not for the ~4 weeks of therapy still required. Patient is currently compliant with hospitalization. If he attempts to leave however, he should be medically detained, or placed on M1 hold as his outpatient psychiatry team does not think he has decisional capacity from a psych standpoint. When medically stable, would place on M1 hold an pursue inpatient psych stay. The patient currently has good improvement in his foot in terms of appearance in symptoms. I reviewed the case in detail today with Dr. Alan Bean who is very happy with how his wound is improving. PLANS: -continue current IV antibiotics -plan on completing his antibiotics here in the hospital on this would come up with some other workable plan -continue his Zyprexa monitor his psychiatric condition closely; consider if necessary to use M1 hold to get him to comply with med of [place] infection here -will recheck chemistry panel and CBC to ensure stability, given his infection and antibiotics SUBJECTIVE: Denies any pain, chills, sweats, shortness of breath, nausea Numb side effects of antibiotic OBJECTIVE Vitals reviewed: Stable without fever Dishwashing Machine Operator, my review: Exam: alert oriented skin warm dry color ok resps not labored lungs clear BSs heart regular abd soft nondistended nontender, bowel sounds present limbs ft looks good with no redness swelling or warmth, good motion of the ankle and toes and good pulse at the foot; otherwise limbs are warm, no edema iv site ok Objective: Vital Signs Temp Pulse Resp BP Pulse Ox 36.4 C 75 16 123/91 H 96 06/21/17 07:44 06/21/17 07:44 06/21/17 07:44 06/21/17 07:44 06/21/17 07:44 Microbiology 06/15/17 21:25 Blood Culture - Final Blood Laboratory Results 06/17/17 05:22 06/17/17 05:22 06/20/17 06/21/17 06/22/17 06:59 06:59 06:59 Intake Total 740 318 Balance 740 318 PT 15.0 SEC (12.0-15.0) 06/15/17 20:30 INR 1.16 (0.83-1.16) 06/15/17 20:30 ICD10 Worksheet Patient Problems: Problems Problem Status Onset Acute psychosis Acute Osteomyelitis Acute Severe sepsis Acute
[2017-06-21 15:04] LABS: HEPATITIS B CORE AB IGM NEGATIVE (NEGATIVE)
--- NOTE | 2017-06-21 15:50 | ASMTCMCOM ---
CM Note CM Note Notes: CM met w/ pt for dispo planning. Pt is agreeable to going to SNF for ivabx. Referrals sent to facilities. CM completed triggering [facility] and sent it to [facility]. CM left a msg for pts Mom and requested a call back to discuss d/c plans. Pt currently has a peripheral IV line in to admin ivabx. Pt will need 4 more weeks of ivabx. CM spoke w/ [facility]. [facility] reports that they are unable to accept pt with pts current ongoing need for ivabx. [facility] also reports that pt will most likely need to be on an M1 hold. CM to follow. Plan: SNF Date Signed: 06/21/2017 03:50 PM Electronically Signed By:CHI Jenkins
[2017-06-22 05:24] LABS: PLATELET COUNT 420 10^3/uL (150-400)
[2017-06-22] MEDS: ceFAZolin 2 GM/SWFI 2 GM/20 ML SYR IVP SCH ×3 (05:52→21:36)
[2017-06-22] MEDS: OXYCODONE/APAP 5/325 TAB PO PRN ×4 (05:55→20:20)
[2017-06-22] MEDS: NICOTINE 21 MG/24 HR PATCH TD SCH (09:31)
[2017-06-22] MEDS: ENOXAPARIN 40 MG/0.4 ML SYR SC SCH (09:32)
[2017-06-22] MEDS: OLANZapine 10 MG TAB PO SCH ×2 (09:32→20:20)
--- NOTE | 2017-06-22 12:23 | HOSPPROG ---
Hospitalist Progress Note Assessment/Plan: 46 yo M w/ paranoid schizophrenia, currently decompensated, presents with R foot infection and recent diagnosis of OM at outside hospital. [place] a PICC line in place. Today is my first encounter w the patient, chart reviewed. 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 If he wants to leave, he needs an M1 hold to treat his infection. Subjective: Ramo has no complaints. Prefers to stay in the hospital. Objective: Vital Signs Temp Pulse Resp BP Pulse Ox 36.5 C 74 16 128/93 H 97 06/22/17 08:00 06/22/17 08:00 06/22/17 08:00 06/22/17 08:00 06/22/17 08:00 Microbiology 06/15/17 21:25 Blood Culture - Final Blood Laboratory Results 06/22/17 04:55 06/22/17 04:55 06/21/17 06/22/17 06/23/17 05:59 05:59 05:59 Intake Total 318 500 Balance 318 500 PT 15.0 SEC (12.0-15.0) 06/15/17 20:30 INR 1.16 (0.83-1.16) 06/15/17 20:30 - Physical Exam Constitutional: other (thin) Eyes: PERRL Ears, Nose, Mouth, Throat: hearing normal Cardiovascular: regular rate and rhythym Respiratory: no respiratory distress Gastrointestinal: normoactive bowel sounds Skin: warm Musculoskeletal: full muscle strength Neurologic: AAOx3 Psychiatric: interacting appropriately, thought process linear, anxious ICD10 Worksheet Patient Problems: Problems Problem Status Onset Acute psychosis Acute Osteomyelitis Acute Severe sepsis Acute
--- NOTE | 2017-06-22 13:16 | PCMIDPN ---
Assessment/Plan: Assessment/Plan: * Right ft abscess/osteomyelitis secondary to MSSA: No residual cellulitis present. Wound packing in place without drainage noted. Completing 6 weeks of cefazolin which is being done as inpatient given underlying schizoaffective disorder and history of injection drug use. * Injection drug use: Will need hepatitis a vaccination as hepatitis A antibody is negative. Will assess hepatitis-B surface antigen in the setting of positive core antibody. 06/22/17 13:13 Subjective: Patient without specific complaints. Objective: Vital Signs Temp Pulse Resp BP Pulse Ox 36.5 C 74 16 128/93 H 97 06/22/17 08:00 06/22/17 08:00 06/22/17 08:00 06/22/17 08:00 06/22/17 08:00 Microbiology 06/15/17 21:25 Blood Culture - Final Blood Laboratory Results 06/22/17 04:55 06/22/17 04:55 06/21/17 06/22/17 06/23/17 05:59 05:59 05:59 Intake Total 318 500 Balance 318 500 ESR 25 MM/HR (0-15) H 06/15/17 20:30 C-Reactive Protein 72.0 mg/L (<10.0) H 06/15/17 20:30 Cefazolin # 16 Laboratory Tests 06/16/17 06/21/17 06/21/17 15:20 10:36 10:36 Hepatitis A Ab Total NEGATIVE Hep Bs Antibody Pending Hep B Core Total Ab REACTIVE H Hep B Core IgM Ab NEGATIVE HIV 1&2 Antibody NEGATIVE - Physical Exam General Appearance: alert, no apparent distress EENT: No scleral icterus, No thrush Respiratory: lungs clear, No respiratory distress Cardiac/Chest: regular rate, rhythm Extremities: inflammation (Right foot with mild edema over dorsal aspect; incision with packing in place without surrounding erythema or palpable fluctuance; no drainage noted) ICD10 Worksheet Patient Problems: Problems Problem Status Onset Acute psychosis Acute Osteomyelitis Acute Severe sepsis Acute
[2017-06-22] MEDS: LORazepam 1 MG TAB PO PRN (20:20)
[2017-06-23] MEDS: ceFAZolin 2 GM/SWFI 2 GM/20 ML SYR IVP SCH ×3 (05:23→20:49)
[2017-06-23] MEDS: OXYCODONE/APAP 5/325 TAB PO PRN ×4 (05:27→18:22)
[2017-06-23] MEDS: NICOTINE 21 MG/24 HR PATCH TD SCH (08:11)
[2017-06-23] MEDS: OLANZapine 10 MG TAB PO SCH ×2 (08:11→20:49)
[2017-06-23] MEDS: ENOXAPARIN 40 MG/0.4 ML SYR SC SCH (08:12)
--- NOTE | 2017-06-23 08:46 | HOSPPROG ---
Hospitalist Progress Note Assessment/Plan: #Right foot abscess, MSSA -6 weeks IV Ancef to be done in hospital with h/o IVDU and schizophrenia #Leukocytosis: resolved #Metabolic acidosis: resolved #Chronic HCV -needs Hep A vaccine, possibly B as well #Paranoid schizophrenia: Zyprexa #Nicotine dependence: patch #Diet: regular #DVT ppx: Lovenox #Disp: warrants inpatient admission for monitored IV abx since schizophrenia hindering medical decisions that could place him in further harm # Subjective: no acute pain Objective: Vital Signs Temp Pulse Resp BP Pulse Ox 36.4 C 80 16 140/78 H 98 06/23/17 08:00 06/23/17 08:00 06/23/17 08:00 06/23/17 08:00 06/23/17 08:00 Laboratory Results 06/22/17 04:55 06/22/17 04:55 06/22/17 06/23/17 06/24/17 05:59 05:59 05:59 Intake Total 500 910 Balance 500 910 PT 15.0 SEC (12.0-15.0) 06/15/17 20:30 INR 1.16 (0.83-1.16) 06/15/17 20:30 - Physical Exam Constitutional: unkempt Eyes: PERRL Ears, Nose, Mouth, Throat: poor dentition, dry mucous membranes Cardiovascular: regular rate and rhythym, no murmur, rub, or gallop Respiratory: no respiratory distress, no rales or rhonchi Gastrointestinal: normoactive bowel sounds, soft, non-tender abdomen Genitourinary: no bladder fullness Skin: warm Musculoskeletal: other (left foot wound packed with minimal surrounding erythma , yellow discharge on the packing) Psychiatric: depressed, flat affect ICD10 Worksheet Patient Problems: Problems Problem Status Onset Acute psychosis Acute Osteomyelitis Acute Severe sepsis Acute
[2017-06-23] MEDS: traMADol 50 MG TAB PO PRN (16:50)
[2017-06-23] MEDS: LORazepam 1 MG TAB PO PRN (20:49)
[2017-06-24 04:15] LABS: HEPATITIS B SURFACE ANTIGEN NEGATIVE (NEGATIVE)
[2017-06-24] MEDS: ceFAZolin 2 GM/SWFI 2 GM/20 ML SYR IVP SCH ×3 (05:32→21:11)
[2017-06-24] MEDS: OXYCODONE/APAP 5/325 TAB PO PRN ×4 (05:32→18:34)
[2017-06-24] MEDS: ENOXAPARIN 40 MG/0.4 ML SYR SC SCH (08:30)
[2017-06-24] MEDS: NICOTINE 21 MG/24 HR PATCH TD SCH (08:32)
[2017-06-24] MEDS: OLANZapine 10 MG TAB PO SCH ×2 (08:33→21:11)
--- NOTE | 2017-06-24 09:56 | ASMTCMCOM ---
CM Note CM Note Notes: Spoke with patient's mother, Constanza who would like to be involved with the d/c to make sure it goes smoothly this time. Patient apparently became afraid and paranoid and ran away from the last facility per Constanza. Patient has been approved for 60 days SNF rehab per [facility]. Constanza's phone number, . Still awaiting responses from referrals. CM will follow. Date Signed: 06/24/2017 09:55 AM Electronically Signed By:Aleshia Carpio LCSW
--- NOTE | 2017-06-24 13:01 | HOSPPROG ---
Hospitalist Progress Note Assessment/Plan: 46 yo M w/ paranoid schizophrenia, currently decompensated, presents with R foot infection and recent diagnosis of OM at outside hospital. [place] P[place] line in place. Today is my first encounter w the patient, chart reviewed. 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 If he wants to leave, he needs an M1 hold to treat his infection. Subjective: Feeling well. Wants more coffee. No issues. Objective: Vital Signs Temp Pulse Resp BP Pulse Ox 36.4 C 82 16 132/82 H 96 06/24/17 08:00 06/24/17 08:00 06/24/17 08:00 06/24/17 08:00 06/24/17 08:00 Laboratory Results 06/22/17 04:55 06/22/17 04:55 06/23/17 06/24/17 06/25/17 05:59 05:59 05:59 Intake Total 910 750 Output Total 150 Balance 910 600 PT 15.0 SEC (12.0-15.0) 06/15/17 20:30 INR 1.16 (0.83-1.16) 06/15/17 20:30 - Physical Exam Constitutional: no apparent distress, appears nourished, not in pain Eyes: PERRL, anicteric sclera, EOMI Ears, Nose, Mouth, Throat: moist mucous membranes, hearing normal, ears appear normal Cardiovascular: No JVD, No tachycardia, No edema Respiratory: no respiratory distress, no rales or rhonchi, reduced air movement Gastrointestinal: normoactive bowel sounds, No tenderness, No ascites Skin: warm, erythema, No mottled Musculoskeletal: no joint effusions, muscular tenderness, generalized weakness Neurologic: AAOx3 Psychiatric: interacting appropriately, not anxious, poor insight, poor judgement ICD10 Worksheet Patient Problems: Problems Problem Status Onset Acute psychosis Acute Osteomyelitis Acute Severe sepsis Acute
[2017-06-24] MEDS: traMADol 50 MG TAB PO PRN ×2 (15:00→21:11)
[2017-06-24] MEDS: LORazepam 1 MG TAB PO PRN (21:11)
[2017-06-25] MEDS: OXYCODONE/APAP 5/325 TAB PO PRN ×4 (05:32→21:03)
[2017-06-25] MEDS: ceFAZolin 2 GM/SWFI 2 GM/20 ML SYR IVP SCH ×3 (05:32→20:58)
[2017-06-25] MEDS: NICOTINE 21 MG/24 HR PATCH TD SCH (09:21)
[2017-06-25] MEDS: OLANZapine 10 MG TAB PO SCH ×2 (09:21→20:58)
[2017-06-25] MEDS: ENOXAPARIN 40 MG/0.4 ML SYR SC SCH (09:22)
[2017-06-25] MEDS: traMADol 50 MG TAB PO PRN ×2 (09:44→15:08)
--- NOTE | 2017-06-25 14:23 | HOSPPROG ---
Hospitalist Progress Note Assessment/Plan: 46 yo M w/ paranoid schizophrenia, currently decompensated, presents with R foot infection and recent diagnosis of OM at outside hospital. [place] a PICC line in place. 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 If he wants to leave, he needs an M1 hold to treat his infection. Subjective: No complaints. Objective: Vital Signs Temp Pulse Resp BP Pulse Ox 36.4 C 84 18 113/81 H 96 06/25/17 08:00 06/25/17 08:00 06/25/17 08:00 06/25/17 08:00 06/25/17 08:00 Laboratory Results 06/22/17 04:55 06/22/17 04:55 06/24/17 06/25/17 06/26/17 05:59 05:59 05:59 Intake Total 750 990 Output Total 150 Balance 600 990 PT 15.0 SEC (12.0-15.0) 06/15/17 20:30 INR 1.16 (0.83-1.16) 06/15/17 20:30 - Physical Exam Constitutional: no apparent distress, appears nourished Eyes: PERRL, anicteric sclera Ears, Nose, Mouth, Throat: moist mucous membranes, hearing normal Cardiovascular: No JVD, No edema Respiratory: no respiratory distress, reduced air movement Gastrointestinal: No tenderness, No ascites Skin: warm, No mottled Musculoskeletal: no joint effusions, generalized weakness Neurologic: AAOx3 Psychiatric: not anxious, not encephalopathic, poor insight ICD10 Worksheet Patient Problems: Problems Problem Status Onset Acute psychosis Acute Osteomyelitis Acute Severe sepsis Acute
--- NOTE | 2017-06-25 15:04 | ASMTCMCOM ---
CM Note CM Note Notes: [facility] interested [facility] patient but needs more information. Contacted [facility] and left a message for Lucille. Awaiting her return call. Spoke with patient today who states his mother is going to let him return home when he is done with rehab. Will need to confirm with patient's mother that she has committed to this. Patient is getting out of his room and walking everyday. Continue search for accepting facility for rehab for patient. CM will follow. Date Signed: 06/25/2017 03:03 PM Electronically Signed By:Aleshia Carpio LCSW
--- NOTE | 2017-06-25 15:22 | ASMTCMCOM ---
CM Note CM Note Notes: New referrals sent in patient's behalf to all facilities within a reasonable distance of [place], [place]. CM will follow. Date Signed: 06/25/2017 03:21 PM Electronically Signed By:Aleshia Carpio LCSW
[2017-06-26] MEDS: ceFAZolin 2 GM/SWFI 2 GM/20 ML SYR IVP SCH ×3 (05:33→21:32)
[2017-06-26] MEDS: OXYCODONE/APAP 5/325 TAB PO PRN ×4 (07:28→20:25)
[2017-06-26] MEDS: traMADol 50 MG TAB PO PRN ×3 (07:28→19:25)
[2017-06-26] MEDS: OLANZapine 10 MG TAB PO SCH ×2 (09:18→20:26)
[2017-06-26] MEDS: NICOTINE 21 MG/24 HR PATCH TD SCH (09:19)
[2017-06-26] MEDS: ENOXAPARIN 40 MG/0.4 ML SYR SC SCH (09:19)
--- NOTE | 2017-06-26 09:28 | PCMIDPN ---
Assessment/Plan: # MSSA R LE foot abscess and OM 1st, 2nd met and cuboid: unclear source of infection, hematogenous vs direct inoculation. Much improved since my last exam with less pain, induration. --07/18/17 stop date --check labs weekly on Saturday # H/o IVDU, Co infected HBV/HCV: HB load 1000 and HCV load 404K, HIV neg --needs HAV vaccine, but did not discuss w patient today # Schizoaffective d/o: cooperative today, leaving PIV in light of flight risk meds, IV Abx # 20 days cefazolin 2gm IV q8 Subjective: denies diarrhea Objective: Vital Signs Temp Pulse Resp BP Pulse Ox 36.9 C 76 16 123/84 H 97 06/26/17 08:00 06/26/17 08:00 06/26/17 08:00 06/26/17 08:00 06/26/17 08:00 Laboratory Results 06/22/17 04:55 06/22/17 04:55 06/25/17 06/26/17 06/27/17 05:59 05:59 05:59 Intake Total 990 Balance 990 ESR 25 MM/HR (0-15) H 06/15/17 20:30 C-Reactive Protein 72.0 mg/L (<10.0) H 06/15/17 20:30 - Physical Exam General Appearance: alert, no apparent distress, thin Respiratory: No accessory muscle use Neck: supple Cardiac/Chest: regular rate, rhythm, No systolic murmur Extremities: other (R lower ext mild swelling medially, narrow 3 cm wound without purulence, no residual erythema) Skin: No rash Neuro/Psych: alert - Line/s PIV Lines: No drainage, No erythema ICD10 Worksheet Patient Problems: Problems Problem Status Onset Acute psychosis Acute Osteomyelitis Acute Severe sepsis Acute
--- NOTE | 2017-06-26 14:12 | HOSPPROG ---
Hospitalist Progress Note Assessment/Plan: 46 yo M w/ paranoid schizophrenia, currently decompensated, presents with R foot infection and recent diagnosis of OM at outside hospital. [place] w a PICC line in place. 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 If he wants to leave, he needs an M1 hold to treat his infection. Subjective: Feeling well. Objective: Vital Signs Temp Pulse Resp BP Pulse Ox 36.9 C 76 16 123/84 H 97 06/26/17 08:00 06/26/17 08:00 06/26/17 08:00 06/26/17 08:00 06/26/17 08:00 Laboratory Results 06/22/17 04:55 06/22/17 04:55 06/25/17 06/26/17 06/27/17 05:59 05:59 05:59 Intake Total 990 Balance 990 PT 15.0 SEC (12.0-15.0) 06/15/17 20:30 INR 1.16 (0.83-1.16) 06/15/17 20:30 - Physical Exam Constitutional: no apparent distress, appears nourished Eyes: PERRL, anicteric sclera Ears, Nose, Mouth, Throat: moist mucous membranes, hearing normal Cardiovascular: No JVD, No edema Respiratory: no respiratory distress, reduced air movement Gastrointestinal: No tenderness, No ascites Skin: warm, erythema Musculoskeletal: pain with ROM, muscular tenderness Neurologic: AAOx3 Psychiatric: interacting appropriately, not anxious, poor insight ICD10 Worksheet Patient Problems: Problems Problem Status Onset Acute psychosis Acute Osteomyelitis Acute Severe sepsis Acute
--- NOTE | 2017-06-26 17:01 | ASMTCMCOM ---
CM Note CM Note Notes: Pt has been declined by 17 facilities. CM spoke w/ Constanza, mom on the phone and provided updates. Mom confirmed that pt can come live w/ her after rehab or when he is finished w/ his ivabx. CM to follow. Plan: TBD Date Signed: 06/26/2017 05:01 PM Electronically Signed By:CHI Jenkins
[2017-06-26] MEDS: LORazepam 1 MG TAB PO PRN (17:50)
[2017-06-27] MEDS: ceFAZolin 2 GM/SWFI 2 GM/20 ML SYR IVP SCH ×3 (05:09→21:38)
[2017-06-27] MEDS: OXYCODONE/APAP 5/325 TAB PO PRN ×4 (08:36→21:47)
[2017-06-27] MEDS: traMADol 50 MG TAB PO PRN ×2 (08:36→17:52)
[2017-06-27] MEDS: OLANZapine 10 MG TAB PO SCH ×3 (09:20→21:56)
[2017-06-27] MEDS: ENOXAPARIN 40 MG/0.4 ML SYR SC SCH (09:21)
[2017-06-27] MEDS: NICOTINE 21 MG/24 HR PATCH TD SCH (09:21)
--- NOTE | 2017-06-27 10:53 | HOSPPROG ---
Hospitalist Progress Note Assessment/Plan: 46 yo M w/ paranoid schizophrenia, currently decompensated, presents with R foot infection and recent diagnosis of OM at outside hospital. [place] w a PICC line in place. 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 If he wants to leave, he needs an M1 hold to treat his infection. Subjective: No issues. In bed. Slept well. Objective: Vital Signs Temp Pulse Resp BP Pulse Ox 36.9 C 60 18 129/84 H 97 06/27/17 07:16 06/27/17 07:16 06/27/17 07:16 06/27/17 07:16 06/27/17 07:16 Laboratory Results 06/22/17 04:55 06/22/17 04:55 PT 15.0 SEC (12.0-15.0) 06/15/17 20:30 INR 1.16 (0.83-1.16) 06/15/17 20:30 - Physical Exam Constitutional: no apparent distress, appears nourished Eyes: PERRL, anicteric sclera Ears, Nose, Mouth, Throat: moist mucous membranes, hearing normal Cardiovascular: No JVD, No edema Respiratory: no respiratory distress, reduced air movement Gastrointestinal: No tenderness, No ascites Skin: warm, No mottled Musculoskeletal: full muscle strength, pain with ROM Neurologic: AAOx3 Psychiatric: not anxious, poor insight, poor judgement ICD10 Worksheet Patient Problems: Problems Problem Status Onset Acute psychosis Acute Osteomyelitis Acute Severe sepsis Acute
[2017-06-27] MEDS ORDERED: HALOPERIDOL LACT 5 MG/ML INJ IVP ONE (22:18)
[2017-06-28] MEDS: ceFAZolin 2 GM/SWFI 2 GM/20 ML SYR IVP SCH ×3 (05:18→22:50)
[2017-06-28] MEDS: OLANZapine 10 MG TAB PO SCH ×2 (07:28→20:34)
[2017-06-28] MEDS: NICOTINE 21 MG/24 HR PATCH TD SCH ×2 (07:29→12:36)
[2017-06-28] MEDS: ENOXAPARIN 40 MG/0.4 ML SYR SC SCH (07:29)
[2017-06-28] MEDS: OXYCODONE/APAP 5/325 TAB PO PRN ×4 (07:40→20:34)
--- NOTE | 2017-06-28 08:42 | HOSPPROG ---
Hospitalist Progress Note Assessment/Plan: 46 yo M w/ paranoid schizophrenia, currently decompensated, presents with R foot infection and recent diagnosis of OM at outside hospital. [place] w a PICC line in place. 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 If he wants to leave, he needs an M1 hold to treat his infection. Subjective: Ramo has no complaints, happy to be in the hospital. Objective: Vital Signs Temp Pulse Resp BP Pulse Ox 36.3 C 58 L 18 129/92 H 98 06/28/17 07:56 06/28/17 07:56 06/28/17 07:56 06/28/17 07:56 06/28/17 07:56 Laboratory Results 06/22/17 04:55 06/22/17 04:55 06/27/17 06/28/17 06/29/17 05:59 05:59 05:59 Intake Total 250 Balance 250 PT 15.0 SEC (12.0-15.0) 06/15/17 20:30 INR 1.16 (0.83-1.16) 06/15/17 20:30 - Physical Exam Constitutional: no apparent distress, other (thin) Eyes: PERRL Ears, Nose, Mouth, Throat: hearing normal Cardiovascular: regular rate and rhythym Respiratory: no respiratory distress Gastrointestinal: normoactive bowel sounds Skin: warm Musculoskeletal: full muscle strength, generalized weakness Neurologic: AAOx3 Psychiatric: interacting appropriately, poor insight, poor judgement ICD10 Worksheet Patient Problems: Problems Problem Status Onset Acute psychosis Acute Osteomyelitis Acute Severe sepsis Acute
--- NOTE | 2017-06-28 09:57 | PCMIDPN ---
Assessment/Plan: 1. Right foot abscess secondary to MSSA status post debridement, with concomitant osteomyelitis of the 1st and 2nd metatarsal and cuboid bones: Continues to improve. Continue Ancef as is through July 18. 2. History of drug use: He has chronic hepatitis-C. He does not have chronic hepatitis-B; lab testing shows evidence of probable exposure to hepatitis B previously, with core antibody positivity and evidence of immunity with a very high surface antibody titer, and negative surface antigen. That being said, with his chronic hepatitis C and lack of immunity to hepatitis a he needs to be vaccinated. Patient agrees to hepatitis a vaccine #1. Today; he will need #2. In December. Subjective: In good spirits. No diarrhea. Objective: Ancef 2 g IV q.8 hours, stop date July 18 Afebrile Vital Signs Temp Pulse Resp BP Pulse Ox 36.3 C 58 L 18 129/92 H 98 06/28/17 07:56 06/28/17 07:56 06/28/17 07:56 06/28/17 07:56 06/28/17 07:56 Laboratory Results 06/22/17 04:55 06/22/17 04:55 06/27/17 06/28/17 06/29/17 05:59 05:59 05:59 Intake Total 250 Balance 250 ESR 25 MM/HR (0-15) H 06/15/17 20:30 C-Reactive Protein 72.0 mg/L (<10.0) H 06/15/17 20:30 - Physical Exam General Appearance: alert, no apparent distress EENT: pharynx normal, No thrush Respiratory: lungs clear Extremities: other (Right foot wound with packing in place. No surrounding erythema. Some tenderness inferiorly, but no fluctuance or warmth. Cellulitis is gone.) ICD10 Worksheet Patient Problems: Problems Problem Status Onset Acute psychosis Acute Osteomyelitis Acute Severe sepsis Acute
[2017-06-28] MEDS ORDERED: HEPATITIS A VIRUS VACCINE 1,440 UNIT/ML SYRINGE IM ONE (10:00)
[2017-06-28] MEDS: traMADol 50 MG TAB PO PRN ×2 (10:01→20:33)
[2017-06-28] MEDS: LORazepam 1 MG TAB PO PRN ×2 (17:08→22:50)
[2017-06-29] MEDS: ceFAZolin 2 GM/SWFI 2 GM/20 ML SYR IVP SCH ×3 (06:40→20:51)
[2017-06-29] MEDS: OXYCODONE/APAP 5/325 TAB PO PRN ×3 (08:17→17:29)
[2017-06-29] MEDS: OLANZapine 10 MG TAB PO SCH ×2 (08:18→20:49)
[2017-06-29] MEDS: NICOTINE 21 MG/24 HR PATCH TD SCH (08:19)
[2017-06-29] MEDS: ENOXAPARIN 40 MG/0.4 ML SYR SC SCH (08:19)
--- NOTE | 2017-06-29 13:26 | HOSPPROG ---
Hospitalist Progress Note Assessment/Plan: 46 yo M w/ paranoid schizophrenia, currently decompensated, presents with R foot infection and recent diagnosis of OM at outside hospital. [place]ICC line in place. 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 If he wants to leave, he needs an M1 hold to treat his infection. Subjective: shantell has some tenderness in his foot but able to ambulate well. Objective: Vital Signs Temp Pulse Resp BP Pulse Ox 36.6 C 73 16 129/85 H 94 06/29/17 08:00 06/29/17 08:00 06/29/17 08:00 06/29/17 08:00 06/29/17 08:00 Laboratory Results 06/22/17 04:55 06/22/17 04:55 06/28/17 06/29/17 06/30/17 05:59 05:59 05:59 Intake Total 250 1010 Balance 250 1010 PT 15.0 SEC (12.0-15.0) 06/15/17 20:30 INR 1.16 (0.83-1.16) 06/15/17 20:30 - Physical Exam Constitutional: other (thin) Eyes: PERRL Ears, Nose, Mouth, Throat: hearing normal Respiratory: no respiratory distress Gastrointestinal: normoactive bowel sounds Skin: warm, other (right foot on dorsal side with small packing in wound, no redness around the site, no swelling, some tenderness w palp) Musculoskeletal: full muscle strength Neurologic: AAOx3, other (impulsive) Psychiatric: interacting appropriately ICD10 Worksheet Patient Problems: Problems Problem Status Onset Acute psychosis Acute Osteomyelitis Acute Severe sepsis Acute
[2017-06-29] MEDS: traMADol 50 MG TAB PO PRN ×2 (15:20→20:50)
[2017-06-29] MEDS: LORazepam 1 MG TAB PO PRN ×2 (15:39→20:50)
--- NOTE | 2017-06-29 16:59 | ASMTCMCOM ---
CM Note CM Note Notes: Spoke w/NON DESTRUCTIVE TESTING SCIENTIST, CM unable to find placement for pt d/t schizophrenia but pt has had no behaviors. Will continue to stay here to received IV abx therapy, last dose will be July 18. Pt will be able to stay with mother after treatment. CM w/continue to follow. DC Plan: SNF placement if possible Date Signed: 06/29/2017 04:58 PM Electronically Signed By:Ricarda Frye RN
[2017-06-29] MEDS: HALOPERIDOL 2 MG TAB PO PRN (17:30)
[2017-06-30] MEDS: ceFAZolin 2 GM/SWFI 2 GM/20 ML SYR IVP SCH ×3 (05:42→22:19)
[2017-06-30] MEDS: OXYCODONE/APAP 5/325 TAB PO PRN ×3 (10:04→19:19)
[2017-06-30] MEDS: NICOTINE 21 MG/24 HR PATCH TD SCH (10:05)
[2017-06-30] MEDS: ENOXAPARIN 40 MG/0.4 ML SYR SC SCH (10:07)
[2017-06-30] MEDS: OLANZapine 10 MG TAB PO SCH ×2 (10:09→22:19)
[2017-06-30] MEDS: traMADol 50 MG TAB PO PRN ×2 (11:48→17:58)
--- NOTE | 2017-06-30 12:25 | HOSPPROG ---
Hospitalist Progress Note Assessment/Plan: 46 yo M w/ paranoid schizophrenia, currently decompensated, presents with R foot infection and recent diagnosis of OM at outside hospital. [place] w a PICC line in place. 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 If he wants to leave, he needs an M1 hold to treat his infection. He is aware of the M1 hold being placed if needed. Subjective: Ramo said his foot hurts. He said he is willing to stay for completion of antibiotics. Objective: Vital Signs Temp Pulse Resp BP Pulse Ox 36.8 C 70 18 118/99 H 97 06/30/17 07:43 06/30/17 07:43 06/30/17 07:43 06/30/17 07:43 06/30/17 07:43 Laboratory Results 06/22/17 04:55 06/22/17 04:55 06/29/17 06/30/17 07/01/17 05:59 05:59 05:59 Intake Total 1010 450 Balance 1010 450 PT 15.0 SEC (12.0-15.0) 06/15/17 20:30 INR 1.16 (0.83-1.16) 06/15/17 20:30 - Physical Exam Constitutional: no apparent distress, appears nourished Eyes: PERRL Ears, Nose, Mouth, Throat: hearing normal Respiratory: no respiratory distress Skin: warm Musculoskeletal: full muscle strength Neurologic: AAOx3 Psychiatric: interacting appropriately, not encephalopathic, poor insight, poor judgement ICD10 Worksheet Patient Problems: Problems Problem Status Onset Acute psychosis Acute Osteomyelitis Acute Severe sepsis Acute
[2017-06-30] MEDS: LORazepam 1 MG TAB PO PRN (19:19)
[2017-07-01] MEDS: ceFAZolin 2 GM/SWFI 2 GM/20 ML SYR IVP SCH ×3 (05:13→21:16)
[2017-07-01 05:24] LABS: PLATELET COUNT 320 10^3/uL (150-400)
[2017-07-01] MEDS: OXYCODONE/APAP 5/325 TAB PO PRN ×3 (07:27→19:25)
[2017-07-01] MEDS: ENOXAPARIN 40 MG/0.4 ML SYR SC SCH (07:28)
[2017-07-01] MEDS: NICOTINE 21 MG/24 HR PATCH TD SCH (07:28)
[2017-07-01] MEDS: OLANZapine 10 MG TAB PO SCH ×2 (07:28→21:16)
[2017-07-01] MEDS: LORazepam 1 MG TAB PO PRN ×2 (07:28→19:26)
[2017-07-01] MEDS: traMADol 50 MG TAB PO PRN ×2 (10:05→18:28)
--- NOTE | 2017-07-01 12:24 | HOSPPROG ---
Hospitalist Progress Note Assessment/Plan: 46 yo M w/ paranoid schizophrenia, currently decompensated, presents with R foot infection and recent diagnosis of OM at outside hospital. [place] PICC line in place. 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 Subjective: Ramo has no complaints, except that his foot is tender. Objective: Vital Signs Temp Pulse Resp BP Pulse Ox 36.4 C 88 18 123/99 H 97 07/01/17 08:00 07/01/17 08:00 07/01/17 08:00 07/01/17 08:00 07/01/17 08:00 Laboratory Results 07/01/17 05:05 07/01/17 05:05 06/30/17 07/01/17 07/02/17 05:59 05:59 05:59 Intake Total 450 Balance 450 PT 15.0 SEC (12.0-15.0) 06/15/17 20:30 INR 1.16 (0.83-1.16) 06/15/17 20:30 - Physical Exam Constitutional: other (thin) Eyes: PERRL Ears, Nose, Mouth, Throat: hearing normal Respiratory: no respiratory distress Skin: warm Musculoskeletal: full muscle strength Neurologic: AAOx3 Psychiatric: interacting appropriately ICD10 Worksheet Patient Problems: Problems Problem Status Onset Acute psychosis Acute Osteomyelitis Acute Severe sepsis Acute
[2017-07-01] MEDS: NICOTINE POLACRILEX 2 MG GUM B PRN ×2 (13:28→20:30)
--- NOTE | 2017-07-01 16:11 | ASMTCMCOM ---
CM Note CM Note Notes: Patient's d/c plan remains finish IV abx here in the hospital until July 18, 2017 and then patient will go to his mother's home. Patient is doing better and takes daily walks here in the hospital. CM will follow. Date Signed: 07/01/2017 04:10 PM Electronically Signed By:Aleshia Carpio LCSW
[2017-07-02] MEDS: ceFAZolin 2 GM/SWFI 2 GM/20 ML SYR IVP SCH ×3 (05:50→21:35)
[2017-07-02] MEDS: LORazepam 1 MG TAB PO PRN ×2 (07:21→17:47)
[2017-07-02] MEDS: OXYCODONE/APAP 5/325 TAB PO PRN ×3 (07:21→17:33)
[2017-07-02] MEDS: NICOTINE 21 MG/24 HR PATCH TD SCH (08:30)
[2017-07-02] MEDS: OLANZapine 10 MG TAB PO SCH ×2 (08:31→20:23)
[2017-07-02] MEDS: traMADol 50 MG TAB PO PRN ×3 (08:35→21:34)
[2017-07-02] MEDS: ENOXAPARIN 40 MG/0.4 ML SYR SC SCH (11:17)
--- NOTE | 2017-07-02 14:25 | HOSPPROG ---
Hospitalist Progress Note Assessment/Plan: 46 yo M w/ paranoid schizophrenia, currently decompensated, presents with R foot infection and recent diagnosis of OM at outside hospital. [place] w a PICC line in place. 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 Subjective: Ramo said his foot has ongoing pain. Objective: Vital Signs Temp Pulse Resp BP Pulse Ox 37.0 C 88 18 114/76 96 07/02/17 07:19 07/02/17 07:19 07/02/17 07:19 07/02/17 07:19 07/02/17 07:19 Laboratory Results 07/01/17 05:05 07/01/17 05:05 07/01/17 07/02/17 07/03/17 05:59 05:59 05:59 Intake Total 2290 Balance 2290 PT 15.0 SEC (12.0-15.0) 06/15/17 20:30 INR 1.16 (0.83-1.16) 06/15/17 20:30 - Physical Exam Constitutional: other (thin) Eyes: PERRL Ears, Nose, Mouth, Throat: hearing normal Respiratory: no respiratory distress Skin: warm Musculoskeletal: full muscle strength Neurologic: AAOx3 Psychiatric: interacting appropriately ICD10 Worksheet Patient Problems: Problems Problem Status Onset Acute psychosis Acute Osteomyelitis Acute Severe sepsis Acute
[2017-07-02] MEDS: NICOTINE POLACRILEX 2 MG GUM B PRN ×4 (15:00→22:45)
[2017-07-02] MEDS: HALOPERIDOL 2 MG TAB PO PRN (20:23)
[2017-07-03] MEDS: ceFAZolin 2 GM/SWFI 2 GM/20 ML SYR IVP SCH ×3 (05:23→22:15)
[2017-07-03] MEDS: traMADol 50 MG TAB PO PRN ×2 (06:46→17:05)
[2017-07-03] MEDS: OXYCODONE/APAP 5/325 TAB PO PRN ×4 (07:28→22:15)
[2017-07-03] MEDS: NICOTINE 21 MG/24 HR PATCH TD SCH (07:28)
[2017-07-03] MEDS: OLANZapine 10 MG TAB PO SCH ×2 (07:29→20:42)
[2017-07-03] MEDS: ENOXAPARIN 40 MG/0.4 ML SYR SC SCH (07:30)
[2017-07-03] MEDS: LORazepam 1 MG TAB PO PRN ×3 (12:41→22:15)
--- NOTE | 2017-07-03 13:50 | HOSPPROG ---
Hospitalist Progress Note Assessment/Plan: 46 yo M w/ paranoid schizophrenia, currently decompensated, presents with R foot infection and recent diagnosis of OM at outside hospital. [place] PICC line in place. 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 Ramo is aware of this and says he will stay in the hospital. Objective: Vital Signs Temp Pulse Resp BP Pulse Ox 36.5 C 75 20 142/85 H 96 07/03/17 07:16 07/03/17 07:16 07/03/17 07:16 07/03/17 07:16 07/03/17 07:16 Laboratory Results 07/01/17 05:05 07/01/17 05:05 07/02/17 07/03/17 07/04/17 05:59 05:59 05:59 Intake Total 2290 400 Balance 2290 400 PT 15.0 SEC (12.0-15.0) 06/15/17 20:30 INR 1.16 (0.83-1.16) 06/15/17 20:30 - Physical Exam Constitutional: no apparent distress Eyes: PERRL Ears, Nose, Mouth, Throat: hearing normal Respiratory: no respiratory distress Skin: warm Musculoskeletal: full muscle strength Neurologic: AAOx3 Psychiatric: interacting appropriately, poor insight ICD10 Worksheet Patient Problems: Problems Problem Status Onset Acute psychosis Acute Osteomyelitis Acute Severe sepsis Acute
--- NOTE | 2017-07-03 16:06 | SOAPPROG ---
SOAP Progress Note Assessment/Plan: Assessment/Plan: Osteomyelitis of right foot Interval improvement in foot insulation power unit tender at metacarpal Daily dressing not required Wound improved almost closed by secondary intention, foot less swollen. Cont abx No need for CT Will f/u next week if in house else f/u in office in 2 weeks 06/20/17 18:25 06/21/17 14:42 07/03/17 16:05 Objective: Vital Signs Temp Pulse Resp BP Pulse Ox 36.5 C 75 20 142/85 H 96 07/03/17 07:16 07/03/17 07:16 07/03/17 07:16 07/03/17 07:16 07/03/17 07:16 Laboratory Results 07/01/17 05:05 07/01/17 05:05 07/02/17 07/03/17 07/04/17 05:59 05:59 05:59 Intake Total 2290 400 Balance 2290 400 PT 15.0 SEC (12.0-15.0) 06/15/17 20:30 INR 1.16 (0.83-1.16) 06/15/17 20:30 ICD10 Worksheet Patient Problems: Problems Problem Status Onset Acute psychosis Acute Osteomyelitis Acute Severe sepsis Acute
[2017-07-03] MEDS: NICOTINE POLACRILEX 2 MG GUM B PRN ×2 (19:12→20:42)
[2017-07-04] MEDS: OXYCODONE/APAP 5/325 TAB PO PRN ×4 (05:11→21:04)
[2017-07-04] MEDS: LORazepam 1 MG TAB PO PRN ×4 (05:11→21:00)
[2017-07-04] MEDS: ceFAZolin 2 GM/SWFI 2 GM/20 ML SYR IVP SCH ×3 (05:11→21:00)
[2017-07-04] MEDS: NICOTINE POLACRILEX 2 MG GUM B PRN (05:12)
[2017-07-04] MEDS: traMADol 50 MG TAB PO PRN ×2 (07:53→14:47)
[2017-07-04] MEDS: OLANZapine 10 MG TAB PO SCH ×2 (07:54→20:02)
[2017-07-04] MEDS: NICOTINE 21 MG/24 HR PATCH TD SCH (07:54)
[2017-07-04] MEDS: ENOXAPARIN 40 MG/0.4 ML SYR SC SCH (07:56)
--- NOTE | 2017-07-04 12:09 | HOSPPROG ---
Hospitalist Progress Note Assessment/Plan: 46 yo M w/ paranoid schizophrenia, currently decompensated, presents with R foot infection and recent diagnosis of OM at outside hospital. [place] w a PICC line in place. 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 Ramo's foot cont to improve, healing well; have explained to him I will cut back on the Percocet dose today. Subjective: Lorenzo said his foot is painful with ambulation, but is better. Objective: Vital Signs Temp Pulse Resp BP Pulse Ox 36.8 C 78 16 128/92 H 100 07/04/17 07:48 07/04/17 07:48 07/04/17 07:48 07/04/17 07:48 07/04/17 07:48 Laboratory Results 07/01/17 05:05 07/01/17 05:05 07/03/17 07/04/17 07/05/17 05:59 05:59 05:59 Intake Total 400 350 Balance 400 350 PT 15.0 SEC (12.0-15.0) 06/15/17 20:30 INR 1.16 (0.83-1.16) 06/15/17 20:30 - Physical Exam Constitutional: no apparent distress, appears nourished Eyes: PERRL Ears, Nose, Mouth, Throat: hearing normal Respiratory: no respiratory distress Skin: warm, other (right foot wound almost closed, no redness or swelling) Musculoskeletal: full muscle strength Neurologic: AAOx3 Psychiatric: interacting appropriately, poor insight ICD10 Worksheet Patient Problems: Problems Problem Status Onset Acute psychosis Acute Osteomyelitis Acute Severe sepsis Acute
--- NOTE | 2017-07-04 16:08 | ASMTCMCOM ---
CM Note CM Note Notes: Pt. to continue to stay at [facility] until IV antibiotics complete due to IVDU hx. Plan to d/c to mother's home [facility] when ready - projected to be July 18, 2017. CMs to check in w/ Constanza regularly as date approaches. CM to follow for d/c POC. Date Signed: 07/04/2017 04:07 PM Electronically Signed By:Erendira Kan LCSW
[2017-07-04] MEDS: HALOPERIDOL 2 MG TAB PO PRN (20:02)
[2017-07-05] MEDS: LORazepam 1 MG TAB PO PRN ×4 (02:35→19:23)
[2017-07-05] MEDS: NICOTINE POLACRILEX 2 MG GUM B PRN (02:35)
[2017-07-05] MEDS: ceFAZolin 2 GM/SWFI 2 GM/20 ML SYR IVP SCH ×3 (06:35→21:35)
[2017-07-05] MEDS: OXYCODONE/APAP 5/325 TAB PO PRN ×4 (07:22→19:23)
[2017-07-05] MEDS: NICOTINE 21 MG/24 HR PATCH TD SCH (08:01)
[2017-07-05] MEDS: OLANZapine 10 MG TAB PO SCH ×2 (08:48→21:35)
[2017-07-05] MEDS: ENOXAPARIN 40 MG/0.4 ML SYR SC SCH (08:48)
--- NOTE | 2017-07-05 10:25 | HOSPPROG ---
Hospitalist Progress Note Assessment/Plan: 46 yo M w/ paranoid schizophrenia, currently decompensated, presents with R foot infection and recent diagnosis of OM at outside hospital. [place] w a PICC line in place. 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 Ramo's foot cont to improve, healing well; have explained to him I will cut back on the Percocet dose today. Subjective: Feeling well. Wants to leave. Objective: Vital Signs Temp Pulse Resp BP Pulse Ox 36.8 C 89 14 137/87 H 95 07/05/17 07:54 07/05/17 07:54 07/05/17 07:54 07/05/17 07:54 07/05/17 07:54 Laboratory Results 07/01/17 05:05 07/01/17 05:05 07/04/17 07/05/17 07/06/17 05:59 05:59 05:59 Intake Total 620 Balance 620 PT 15.0 SEC (12.0-15.0) 06/15/17 20:30 INR 1.16 (0.83-1.16) 06/15/17 20:30 - Physical Exam Constitutional: no apparent distress, not in pain Eyes: PERRL, anicteric sclera Ears, Nose, Mouth, Throat: moist mucous membranes, hearing normal Cardiovascular: No JVD, No edema Respiratory: no respiratory distress, reduced air movement Gastrointestinal: No tenderness, No ascites Skin: warm, normal color Musculoskeletal: normal joint ROM, no joint effusions Neurologic: AAOx3 Psychiatric: interacting appropriately, not anxious ICD10 Worksheet Patient Problems: Problems Problem Status Onset Acute psychosis Acute Osteomyelitis Acute Severe sepsis Acute
--- NOTE | 2017-07-05 10:28 | PCMIDPN ---
Assessment/Plan: 1. Right foot abscess secondary to MSSA status post debridement, with concomitant osteomyelitis of the 1st and 2nd metatarsal and cuboid bones: Continues to improve. Continue Ancef as is through July 18. Counseled the patient that he needs to wear either socks or slippers and not walk around barefoot. Needs safety labs repeated (CBC with differential, complete metabolic panel) on Saturday, July 08. 2. Chronic hepatitis-C: Hopefully we can treat this moving forward if he remains sober. Hepatitis a vaccine #12 December 2017. Subjective: Found the patient walking down the hallway barefoot. Denies diarrhea, nausea or vomiting. Asking for another tramadol because"I am hurting." Objective: Ancef 2 g IV q.8 hours through July 18 Afebrile Vital Signs Temp Pulse Resp BP Pulse Ox 36.8 C 89 14 137/87 H 95 07/05/17 07:54 07/05/17 07:54 07/05/17 07:54 07/05/17 07:54 07/05/17 07:54 Laboratory Results 07/01/17 05:05 07/01/17 05:05 07/04/17 07/05/17 07/06/17 05:59 05:59 05:59 Intake Total 620 Balance 620 ESR 25 MM/HR (0-15) H 06/15/17 20:30 C-Reactive Protein < 5.0 mg/L (<10.0) 07/01/17 05:05 Safety labs from July 01 are fine - Physical Exam General Appearance: alert, other (Disheveled) EENT: pharynx normal, No thrush Respiratory: lungs clear Cardiac/Chest: regular rate, rhythm Extremities: other (Dorsum of right foot with intact incision, no drainage. No surrounding erythema. Fairly tender, but no fluctuance, or other. Desquamated skin on the soles of his feet) Neuro/Psych: oriented x 3 ICD10 Worksheet Patient Problems: Problems Problem Status Onset Acute psychosis Acute Osteomyelitis Acute Severe sepsis Acute
[2017-07-05] MEDS: traMADol 50 MG TAB PO PRN ×2 (10:32→19:23)
[2017-07-06] MEDS: traMADol 50 MG TAB PO PRN ×3 (04:05→17:51)
[2017-07-06] MEDS: OXYCODONE/APAP 5/325 TAB PO PRN ×5 (04:05→20:19)
[2017-07-06] MEDS: ceFAZolin 2 GM/SWFI 2 GM/20 ML SYR IVP SCH ×3 (05:09→21:23)
[2017-07-06 08:09] VITALS: O2SAT 97
[2017-07-06] MEDS: NICOTINE 21 MG/24 HR PATCH TD SCH (08:27)
[2017-07-06] MEDS: OLANZapine 10 MG TAB PO SCH ×2 (08:27→21:23)
[2017-07-06] MEDS: ENOXAPARIN 40 MG/0.4 ML SYR SC SCH ×2 (08:28→08:47)
--- NOTE | 2017-07-06 10:34 | HOSPPROG ---
Hospitalist Progress Note Assessment/Plan: 46 yo M w/ paranoid schizophrenia, currently decompensated, presents with R foot infection and recent diagnosis of OM at outside hospital. [place] w a PICC line in place. 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 Ramo's foot cont to improve, healing well; have explained to him I will cut back on the Percocet dose today. Subjective: Up walking. No issues. Objective: Vital Signs Temp Pulse Resp BP Pulse Ox 36.6 C 72 16 125/102 H 97 07/06/17 08:00 07/06/17 08:00 07/06/17 08:00 07/06/17 08:00 07/06/17 08:00 Laboratory Results 07/01/17 05:05 07/01/17 05:05 07/05/17 07/06/17 07/07/17 05:59 05:59 05:59 Intake Total 620 Balance 620 PT 15.0 SEC (12.0-15.0) 06/15/17 20:30 INR 1.16 (0.83-1.16) 06/15/17 20:30 - Physical Exam Constitutional: no apparent distress, appears nourished Eyes: PERRL, anicteric sclera Ears, Nose, Mouth, Throat: moist mucous membranes, hearing normal Cardiovascular: No JVD, No edema Respiratory: no respiratory distress, reduced air movement Gastrointestinal: No tenderness, No ascites Skin: warm, normal color Musculoskeletal: full muscle strength, no joint effusions Neurologic: AAOx3 Psychiatric: interacting appropriately, not anxious ICD10 Worksheet Patient Problems: Problems Problem Status Onset Acute psychosis Acute Osteomyelitis Acute Severe sepsis Acute
[2017-07-06] MEDS: LORazepam 1 MG TAB PO PRN ×2 (12:16→17:42)
[2017-07-06] MEDS: HALOPERIDOL 2 MG TAB PO PRN (17:51)
[2017-07-06] MEDS: NICOTINE POLACRILEX 2 MG GUM B PRN (20:59)
[2017-07-07 00:30] VITALS: RESP 16
[2017-07-07] MEDS: OXYCODONE/APAP 5/325 TAB PO PRN ×2 (04:39→09:25)
[2017-07-07] MEDS: traMADol 50 MG TAB PO PRN ×2 (04:39→12:21)
[2017-07-07] MEDS: ceFAZolin 2 GM/SWFI 2 GM/20 ML SYR IVP SCH (05:06)
[2017-07-07] MEDS: NICOTINE POLACRILEX 2 MG GUM B PRN (05:36)
[2017-07-07 07:21] VITALS: BP 136/96; PULSE 69; TEMP 97.8
[2017-07-07] MEDS: OLANZapine 10 MG TAB PO SCH (08:20)
[2017-07-07] MEDS: LORazepam 1 MG TAB PO PRN ×2 (08:20→12:22)
[2017-07-07] MEDS: NICOTINE 21 MG/24 HR PATCH TD SCH (08:21)
[2017-07-07] MEDS: ENOXAPARIN 40 MG/0.4 ML SYR SC SCH (09:21)
[2017-07-07] MEDS: HALOPERIDOL 2 MG TAB PO PRN (09:29)
--- NOTE | 2017-07-07 09:36 | HOSPPROG ---
Hospitalist Progress Note Assessment/Plan: 46 yo M w/ paranoid schizophrenia, currently decompensated, presents with R foot infection and recent diagnosis of OM at outside hospital. [place] w a PICC line in place. 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 Ramo's foot cont to improve, healing well; have explained to him I will cut back on the Percocet dose today. Subjective: Up walking. No issues. Objective: Vital Signs Temp Pulse Resp BP Pulse Ox 36.6 C 69 16 136/96 H 97 07/07/17 07:20 07/07/17 07:20 07/07/17 07:20 07/07/17 07:20 07/07/17 07:20 Laboratory Results 07/01/17 05:05 07/01/17 05:05 PT 15.0 SEC (12.0-15.0) 06/15/17 20:30 INR 1.16 (0.83-1.16) 06/15/17 20:30 - Physical Exam Constitutional: no apparent distress, appears nourished Eyes: PERRL, anicteric sclera Ears, Nose, Mouth, Throat: moist mucous membranes, hearing normal Cardiovascular: regular rate and rhythym, No JVD Gastrointestinal: normoactive bowel sounds, No ascites Musculoskeletal: full muscle strength, normal joint ROM Neurologic: AAOx3 Psychiatric: not encephalopathic, anxious, poor insight, poor judgement ICD10 Worksheet Patient Problems: Problems Problem Status Onset Acute psychosis Acute Osteomyelitis Acute Severe sepsis Acute
--- NOTE | 2017-07-07 14:18 | GDS ---
[f rep st] DISCHARGE SUMMARY AGAINST MEDICAL ADVICE DISCHARGE DIAGNOSES: 1. Right foot abscess secondary to methicillin-sensitive Staphylococcus aureus and osteomyelitis. 2. Paranoid schizophrenia. 3. Chronic hepatitis C. 4. History of IV drug abuse. 5. Homelessness. 6. Nicotine dependency. CONSULTATIONS: Infectious Disease. HOSPITAL COURSE: The patient is a 46-year-old male who was brought to the emergency room by the police and diagnosed with osteomyelitis of his right foot. He was placed on IV antibiotic therapy during this hospitalization secondary to his history of IV drug abuse, as well as his paranoid schizophrenia. The patient received a peripheral IV and was to remain in the hospital setting through July 18 to continue his antibiotic therapy. Today, on 07/07/2017, the patient left the hospital without informing anybody. He has left the hospital against medical advice. The police have been notified, as well as his mother. They are out looking for him to convince him to return to the hospital for further antibiotic therapy. He also suffers from chronic hepatitis C, which should be treated in the future. Again, the patient has left against medical advice without any discharge medications or followup plan. /[id number]/MODL MTDD
--- NOTE | 2017-07-07 17:34 | ASMTLACE ---
DARLEEN Length of stay for Answers: 14 days or more current admission Acuity / Level of Answers: Yes Care: Did the patient have an inpatient admission? Comorbidities - select Answers: Other Notes: Chronic Hep C, IV drug all that apply use, osteomyelitis # of Emergency department Answers: 1-2 visits in the last 6 months Social determinants Answers: History of substance abuse (ETOH, street drugs, prescription drugs, etc.) Mental health diagnosis (anxiety, depression, pers onality disorders, etc.) Score: 18 Date Signed: 07/07/2017 05:33 PM Electronically Signed By:Mindy Levine RN
--- NOTE | 2017-07-07 17:40 | ASDISCHSUM ---
Discharge Information Plan Status:Home with No Needs Medically Cleared to Leave: Discharge Date:07/07/2017 04:38 PM CM D/C Disposition:Against Medical Advice ADT D/C Disposition:Against Medical Advice Projected Discharge Date:06/26/2017 11:00 AM Transportation at D/C:None or Unknown Discharge Delay Reason: Follow-Up Date:06/26/2017 11:00 AM Discharge Slot: Final Diagnosis:R foot abscess, staph aureus, osteomyelitis, chronic hep C, hx IV drug use, nicotine dependency Placement Information Referral Type:Psychiatric Hospital or Unit Referral ID:[id number] Provider Name: Address 1: Phone Number: Address 2: Fax Number: City: Selection Factors: State: Referral Type:*Senior Living/SNF Referral ID:[id number] Provider Name: Address 1: Phone Number: Address 2: Fax Number: City: Selection Factors: State: Referral Type:*Senior Living/SNF Referral ID:[id number] Provider Name: Address 1: Phone Number: Address 2: Fax Number: City: Selection Factors: State: Patient Contact Information Contact Name:FLOR Relationship:Mother Address:[address] Work Phone: City:[place] Alternate Phone: [facility]/Zip Code:[place] [address] Email: Financial Information Financial Class:Medicare Primary Plan Desc:MEDICARE INPATIENT Primary Plan Number:[id number] Secondary Plan Desc:[place] Secondary Plan Number:[id number] Assessment Information [facility] CM Progress Note CM Note CM Note Notes: 46 year old male admitted for R foot infection, possible osteomyelitis, schizophrenia-psychosis. He has a hx of meth use. Was D/C from [facility] 2 days ago went to [facility], left AMA came to [facility] and now on M1 Hold. Will need a psych eval after cleared medically. CM to follow. Date Signed: 06/16/2017 09:45 AM Electronically Signed By:Claudia Delgadillo LCSW [facility] Progress Note CM Note CM Note Notes: Spoke to patient's mother, Constanza [phone] today. Patient has had mental hlth and SA difficulties for the past 30 years. He is involved with the [facility] [place] and has a CM named Sayda Harrington [phone] who has been working with him for the past 2 years and knows what medications they have prescribed. This info given to [facility] pharmacy. Mother also reports that patient is a paranoid schizophrenic, feels that everyone is after him and that a snake bit him in his foot and that's why it's infected. He had been at [facility] for 11 days then went to [facility] for more IV ABX. He left there due to his paranoia and came to [place]. Mother reports that he uses Meth and Heroin. Mother feels that he is a "Danger to Himself". Date Signed: 06/17/2017 05:28 PM Electronically Signed By:Claudia Delgadillo LCSW [facility] Progress Note CM Note CM Note Notes: Pt on 3N from ICU. WALTER Mcintyre spoke to this CM about a conversation she had w pt mother Ele ([phone]), Ele is interested in [facility] for pt. Pt sister who is a nurse had made a call to a case manger at [facility]. Referral sent in [employer], unknown if they can meet pt needs. Pt picc was removed at admission and antibiotics are administered now via peripheral. Chart review indicates pt still needs to be seen by psych here. Pt moved to this afternoon. Date Signed: 06/19/2017 05:04 PM Electronically Signed By:JEREMIE Roman [facility] Progress Note CM Note CM Note Notes: Pt currently being treated for RLE Osteomyeitis/abcess, has hx of schizophrenia and IV drug abuse. Pt's community mental health social worker from [facility] ([facility] Viola ([phone]) here this AM to see pt. Todd reports that she has been working with pt for around 6 months and says he is not compliant w/meds, is addicted to meth, although she says he denies this, and he is often hard for her to track down in her attempts to follow him. She obtained release of info this AM from pt so she could discuss info with his mom. I also asked pt if ok for us to share medical info with his mom and sister and he did give verbal consent to this. Viola also reports that pt lives on streets. She said that she is advocating for in hospital certification of treatment and she even suggested possibly considering obtaining guardianship through mom or sister. Discussed all of this w/Dr Lewis. Please see her note as to current plan with this pt. Viola reported that pt is on [facility] wait list which is 1 year long through [facility]. Pt's Mom, Constanza # is [phone]. Viola from [facility] would like to be kep in loop of pts plan/staus so that she can continue to follow him. Date Signed: 06/20/2017 12:39 PM Electronically Signed By:Tesha Powell RN [facility] CM Progress Note CM Note CM Note Notes: CM met w/ pt for dispo planning. Pt is agreeable to going to SNF for ivabx. Referrals sent to facilities. CM completed triggering PAS[facility] and sent it to [facility]. CM left a msg for pts Mom and requested a call back to discuss d/c plans. Pt currently has a peripheral IV line in to admin ivabx. Pt will need 4 more weeks of ivabx. CM spoke w/ [facility] admissions. [facility] reports that they are unable to accept pt with pts current ongoing need for ivabx. [facility] also reports that pt will most likely need to be on an M1 hold. CM to follow. Plan: SNF Date Signed: 06/21/2017 03:50 PM Electronically Signed By:CHI Jenkins [facility] CM Progress Note CM Note CM Note Notes: Spoke with patient's mother, Constanza who would like to be involved with the d/c to make sure it goes smoothly this time. Patient apparently became afraid and paranoid and ran away from the last facility per Constanza. Patient has been approved for 60 days SNF rehab per [facility]. Constanza's phone number, . Still awaiting responses from referrals. CM will follow. Date Signed: 06/24/2017 09:55 AM Electronically Signed By:Aleshia Carpio LCSW [facility] Progress Note CM Note CM Note Notes: [facility] interested [facility] patient but needs more information. Contacted [facility] and left a message for Lucille. Awaiting her return call. Spoke with patient today who states his mother is going to let him return home when he is done with rehab. Will need to confirm with patient's mother that she has committed to this. Patient is getting out of his room and walking everyday. Continue search for accepting facility for rehab for patient. CM will follow. Date Signed: 06/25/2017 03:03 PM Electronically Signed By:Aleshia Carpio LCSW [facility] Progress Note CM Note CM Note Notes: New referrals sent in patient's behalf to all facilities within a reasonable distance of [place], [place]. CM will follow. Date Signed: 06/25/2017 03:21 PM Electronically Signed By:Aleshia Carpio LCSW [facility] Length of stay for Answers: 14 days or more current admission Acuity / Level of Answers: Yes Care: Did the patient have an inpatient admission? Comorbidities - select Answers: Other Notes: Chronic Hep C, IV drug all that apply use, osteomyelitis # of Emergency department Answers: 1-2 visits in the last 6 months Social determinants Answers: History of substance abuse (ETOH, street drugs, prescription drugs, etc.) Mental health diagnosis (anxiety, depression, pers onality disorders, etc.) Score: 18 Date Signed: 07/07/2017 05:33 PM Electronically Signed By:Mindy Levine RN [facility] CM Progress Note CM Note CM Note Notes: Pt has been declined by 17 facilities. CM spoke w/ Constanza, mom on the phone and provided updates. Mom confirmed that pt can come live w/ her after rehab or when he is finished w/ his ivabx. CM to follow. Plan: TBD Date Signed: 06/26/2017 05:01 PM Electronically Signed By:CHI Jenkins [facility] CM Progress Note CM Note CM Note Notes: Spoke w/[facility] unable to find placement for pt d/t schizophrenia but pt has had no behaviors. Will continue to stay here to received IV abx therapy, last dose will be July 18. Pt will be able to stay with mother after treatment. CM w/continue to follow. DC Plan: SNF placement if possible Date Signed: 06/29/2017 04:58 PM Electronically Signed By:Ricarda Frye RN [facility] CM Progress Note CM Note CM Note Notes: Patient's d/c plan remains finish IV abx here in the hospital until July 18, 2017 and then patient will go to his mother's home. Patient is doing better and takes daily walks here in the hospital. CM will follow. Date Signed: 07/01/2017 04:10 PM Electronically Signed By:Aleshia Carpio LCSW [facility] CM Progress Note CM Note CM Note Notes: Pt. to continue to stay at [facility] until IV antibiotics complete due to IVDU hx. Plan to d/c to mother's home Constanza when ready - projected to be July 18, 2017. CMs to check in w/ Constanza regularly as date approaches. CM to follow for d/c POC. Date Signed: 07/04/2017 04:07 PM Electronically Signed By:[facility]rend[facility] Kan LCSW [facility] CM Progress Note CM Note CM Note Notes: Alerted by WALTER Wisdom and MILLA Alcocer, pt left against medical advice at approximately 12:30 today. Pt left dressed in multiple layers w/ slippers and a peripheral IV in place. Per MILLA Alcocer, [facility] Department notified, as well as pt's mother. Code wanderer initiated per hospital protocol; security alerted. Call placed to [facility] RN, CM in the Emergency Department - update provided. ER NICHOLs and ER MILLA alerted. If pt returns, he should be placed on an M1 hold. CM available for any further issues or concerns. Date Signed: 07/07/2017 05:39 PM Electronically Signed By:Mindy Levine RN Intervention Information
== END 2017-07-07 16:38 | disposition left against medical advice (07) | DRG 540 ==
LOC: OBSVTOIN 21:10 → F2N 06-16 00:20 → F3N 06-18 18:48 → F3E 06-19 16:37
PROVIDERS: ADMIT Family Medicine; ATTEND Family Medicine
DX: M86.171 Other acute osteomyelitis, right ankle and foot (principal); F20.0 Paranoid schizophrenia; Z68.1 Body mass index [BMI] 19.9 or less, adult; L02.611 Cutaneous abscess of right foot; B19.20 Unspecified viral hepatitis C without hepatic coma; B95.61 Methicillin susceptible Staphylococcus aureus infection as the cause of diseases classified elsewhere; F15.10 Other stimulant abuse, uncomplicated; R63.6 Underweight; F17.200 Nicotine dependence, unspecified, uncomplicated; F14.10 Cocaine abuse, uncomplicated; Z59.0 Homelessness
CPT/HCPCS: 80305; 86704-90; 86705-90; 86708-90; 97116-GP; 97161-GP; 97164-GP; 97165-GO; G0480; G8978-GP-CI; G8979-GP-CI; G8980-GP-CI; G8987-GO-CK; G8988-GO-CJ; G8989-GO-CJ; J0690; J0692; J1630; J1650; J2060; J2270; J2405; J2704